=== PATIENT | female | born 1950 | race Caucasian/White ===

== ENCOUNTER 2020-11-07 17:11 | Emergency (ER) | payer MEDICARE, SELFPAY ==
--- NOTE | ~2020-11-07 | XR_ITS ---
EXAMINATION: XR knee LT min 4V DATE: 11/07/2020 17:43 INDICATION: Left knee injury and pain and swelling. TECHNIQUE: 5 views of left knee were obtained. COMPARISON: None. FINDINGS: Bone alignment is normal. No fracture. There is mild osteoarthritis of medial and lateral c ompartments and moderate osteoarthritis of patellofemoral compartment. There is ossification of origi n of medial collateral ligament. There is a vascular stent in the thigh. No knee joint effusion. IMPRESSION: 1. Moderate left knee osteoarthritis. Reviewed, dictated and finalized at location A.
[2020-11-07 17:16] VITALS: BP 154/74; PULSE 72; RESP 20; TEMP 36.2; O2SAT 94
[2020-11-07 17:26] VITALS: BP 154/74; PULSE 72; RESP 20; TEMP 36.2; O2SAT 94
--- NOTE | 2020-11-07 17:39 | ED.LOWEXIN ---
HPI - Extremity Injury (Lower) General Chief Complaint: Extremity Injury, Lower Stated Complaint: lt knee injury Source: patient, RN notes reviewed and old records reviewed Mode of arrival: ambulatory Limitations: no limitations History of Present Illness HPI Narrative: 70 year old female who presents to [facility] care with complaints of injury to her left knee when she lost her footing at home and fell onto carpeted surface. Patient has large amount of bruising and swelling to her left anterior knee, does have full ROM to her knee with out acute pain. Patient also has bruising to her right anterior arm with no pain or swelling noted. Patient states that she broke her glasses, is unsure if she hit her head but states no LOC, dizziness or visual disturbances. Patient does admit to a frontal headache but states no nausea or any acute pain to head MD complaint: knee injury and fall Onset (ago): hour(s) (1 hour prior to arrival) Injury: Left: knee (anterior aspect) Type of Injury: blunt Place: home Severity: moderate Related Data Home Medications Medication Instructions Recorded Confirmed allopurinol 11/07/20 atorvastatin 11/07/20 benzonatate mg PO 11/07/20 clopidogrel 11/07/20 empagliflozin [Jardiance] mg 11/07/20 escitalopram oxalate mg 11/07/20 famotidine 11/07/20 gabapentin 11/07/20 icosapent ethyl [Vascepa] g PO 11/07/20 levothyroxine 11/07/20 losartan 11/07/20 metformin mg 11/07/20 sitagliptin [Januvia] mg 11/07/20 Allergies Allergy/AdvReac Type Severity Reaction Status Date / Time No Known Allergies Allergy Verified 11/07/20 17:25 Review of Systems Review of Systems: Narrative: CONSTITUTIONAL: Denies fever, chills, or sweats. EYES: Denies visual changes, redness, or discharge. ENT: Denies rhinorrhea, congestion, sore throat, or otalgia. CARDIOVASCULAR: Denies chest pain, palpitations, or edema. RESPIRATORY: Denies cough or dyspnea. GASTROINTESTINAL: Denies abdominal pain, nausea, vomiting, or diarrhea. GENITOURINARY: Denies dysuria or hematuria. SKIN: Denies rash or itching. MUSCULOSKELETAL: Denies back pain, positive to left knee joint pain with bruising noted, bruising to right anterior upper arm with no swelling or pain. NEUROLOGIC frontal headache, no numbness, or weakness. PSYCHIATRIC: Denies anxiety or depression. All systems reviewed & are unremarkable except as noted in HPI and below PMFSH Past Medical History Medical History (Updated 11/07/20 @ 19:24 by Marylu Alston NP) COPD (chronic obstructive pulmonary disease) Diabetes Gout Hypercholesterolemia Hypertension Surgical History Surgical History (Updated 11/07/20 @ 17:48 by Marylu Alston NP) H/O section H/O inguinal hernia repair H/O: hysterectomy Hx of cholecystectomy Family History Family History (Updated 11/07/20 @ 19:20 by Marylu Alston NP) Mother Heart disease Diabetes mellitus Father Hypertension Grandparent Diabetes mellitus Breast cancer Social History Social History (Updated 11/07/20 @ 17:54 by Marylu Alston NP) Smoking status: Former smoker Tobacco type: cigarettes Additional smoking assessment comments: quit 2001 Alcohol intake: current Alcohol use details: rare social Substance use: never Living arrangements: alone Gender identity (if verbalized by the patient): Female Comments At time of signature, agree with nursing past medical, surgical, social and family history. There is no relevant family history pertinent to the presenting complaint Exam Narrative: Exam Narrative: GENERAL: Well-appearing, well-nourished, and in no acute distress. HEAD: Normocephalic, atraumatic. EYES: PERRLA and EOMI. ENT: Nares clear, no rhinorrhea or epistaxis. Mucous membranes moist. TM's normal with good light reflex, throat pink with no exudates or lesions, no tonsil enlargement. NECK: Supple. no lymphadenopathy CHEST: Clear to auscultation. No respiratory di
== END 2020-11-07 18:03 | disposition home or self-care (01) ==
PROVIDERS: Emergency Provider Registered Nurse; PCP Internal Medicine
DX: S80.02XA Contusion of left knee, initial encounter (principal); W01.0XXA Fall on same level from slipping, tripping and stumbling without subsequent striking against object, initial encounter; J44.9 Chronic obstructive pulmonary disease, unspecified; E11.9 Type 2 diabetes mellitus without complications; M10.9 Gout, unspecified; E78.00 Pure hypercholesterolemia, unspecified; I10 Essential (primary) hypertension
CPT/HCPCS: 73564; 99213; G0463

== ENCOUNTER 2021-08-10 13:16 | Outpatient (CLI) | payer MEDICARE, SELFPAY ==
--- NOTE | ~2021-08-10 | CT_ITS ---
EXAMINATION:CT diagnostic chest wo con DATE: 08/10/2021 14:00 INDICATION: Shortness of breath. TECHNIQUE: Computed tomography (CT) of the chest was performed without intravenous contrast. Automate d exposure control and iterative reconstruction technique were employed. The dose-length product (DLP ) was 640.55 mGy-cm. COMPARISON: None. FINDINGS: There is diffuse mosaic attenuation in the lungs. There is peripheral septal thickening in the lower lungs. No bronchiectasis or honeycombing. There are a few scattered nodules in the lungs me asuring up to 4 mm, likely benign. No pleural effusion. The heart size is normal. There are coronary artery calcifications. No pericardial effusion. There are changes of cholecystectomy. There are cysts in left kidney measuring up to 2.5 cm. There are bridging endplate osteophytes at multiple levels in the spine, consistent with diffuse idiopathic skeletal hyperostosis (DISH). There is severe cervical spondylosis. At T6-T7, there is moderate central canal stenosis. IMPRESSION: 1. 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 Reviewed, dictated and finalized at location A. S ROOM ASSISTANT
[2021-08-10 13:31] VITALS: PULSE 75; O2SAT 87
[2021-08-10 13:32] VITALS: PULSE 76; O2SAT 87
[2021-08-10 13:34] VITALS: PULSE 75; O2SAT 90
[2021-08-10 13:36] VITALS: PULSE 93; O2SAT 86
[2021-08-10 13:37] VITALS: PULSE 94; O2SAT 89
--- NOTE | 2021-08-10 13:44 | HOMEO2EVAL ---
Evaluation was performed at [facility] Home Oxygen Evaluation RC: Home Oxygen (O2) Evaluation Start: 08/10/21 13:41 Freq: Status: Active Protocol: RPE Activity Type Activity Date Activity User E-Sign Co-Sign Detail Recorded Client Recorded Date Recorded By Document 08/10/21 13:31 KRM [id number] 08/10/21 13:44 KRM Document 08/10/21 13:32 [email or web address] [id number] 08/10/21 13:44 KRM Document 08/10/21 13:34 KRM [id number] 08/10/21 13:44 KRM Document 08/10/21 13:36 [email or web address] [email or web address] 08/10/21 13:44 KRM Document 08/10/21 13:37 KRM [email or web address] 08/10/21 13:44 KRM 08/10/21 08/10/21 08/10/21 13:31 13:32 13:34 Home O2 Evaluation Test Phase Resting Resting Resting Oxygen Delivery Room Air Nasal Cannula Nasal Cannula Oxygen Flow Rate (L/min) 1 2 Pulse Oximetry (90-100 %) 87 L 87 L 90 Pulse Rate (60-100 beats/min) 75 76 75 Activity Tolerance Ambulation Distance (feet) Ambulation Distance (meters) Home Oxygen Evaluation Comments Treatment Charges O2 Evaluation - Outpatient 08/10/21 08/10/21 13:36 13:37 Home O2 Evaluation Test Phase Exercise Exercise Oxygen Delivery Nasal Cannula Nasal Cannula Oxygen Flow Rate (L/min) 2 3 Pulse Oximetry (90-100 %) 86 L 89 L Pulse Rate (60-100 beats/min) 93 94 Activity Tolerance Fair Fair Ambulation Distance (feet) 100 Ambulation Distance (meters) 30.47 Home Oxygen Evaluation Comments 2 LPM AT REST AND 3LPM WITH ACTIVITY. Treatment Charges
== END 2021-08-10 13:17 | disposition home or self-care (01) ==
LOC: ANHPFT 13:19
PROVIDERS: PCP Internal Medicine; Visit Provider Internal Medicine Pulmonary Disease
DX: R06.00 Dyspnea, unspecified (principal); J98.4 Other disorders of lung
CPT/HCPCS: 71250; 94618

== ENCOUNTER 2021-09-03 13:33 | Outpatient (CLI) | payer MEDICARE, SELFPAY ==
--- NOTE | 2021-09-03 16:22 | WPDPFTINT ---
PFT Procedure Performed PFT Procedure Performed Spirometry with Pre/Post Bronchodilator Plethysmography (Lung Vol) Diffusing Cap (DLCO) Flow Vol Loop PFT Interpretation This is a pulmonary function test with pre and post-bronchodilator spirometry, plethysmography and diffusing capacity. The test was performed and results interpreted in accordance with the 2019 and 2005 ATS/ERS Task Force guidelines respectively using the Global Lung Function Initiative-2012 reference equations. Patient demonstrated good effort and cooperation. Reproducibility criteria were met. The quality of the pre bronchodilator spirometry maneuver was Grade A and post bronchodilator spirometry maneuver was Grade A. Findings: Spirometry: There is decreased maximal expiratory airflow at low lung volumes with concave expiratory flow tracing. The contour of the inspiratory flow tracing is normal. The pre bronchodilator FVC is 1.33 L, 55% predicted. The pre bronchodilator FEV1 is 0.93 L, 49% predicted. The FEV1: FVC ratio 70%. The post bronchodilator FVC is 1.50 L, representing a 170 mL increase or 13% increase. The post bronchodilator FEV1 is 0.93 L, representing 1% decrease. The post bronchodilator FEV1: FVC ratio is 62% predicted. Plethysmography: The total lung capacity is 3.52 L, 82% predicted. The functional residual capacity is 2.11 L, 87% predicted. The residual volume is 2.01 L, 105% predicted. Diffusing capacity: The diffusion capacity unadjusted for hemoglobin is 9.8, 53% predicted. The diffusing capacity adjusted for alveolar volume is 4.15, 92% predicted. Impression: There is a severe obstructive abnormality without significant improvement after inhaling a single dose of albuterol. The lung volumes are normal. The diffusing capacity unadjusted for hemoglobin is moderately decreased and normalizes when adjusted for alveolar volume. There are no prior studies for comparison
[2021-09-03 16:42] LABS: Rheumatoid Factor < 12.0 IU/ML (<12)
[2021-09-07 12:53] LABS: Anti Cyclic Citrullinated Pept <16 Units (<20)
[2021-09-07 19:42] LABS: ANA Cascade Screen Negative (Negative)
[2021-09-09 13:23] LABS: ANCA Screen Negative (Negative)
== END 2021-09-03 13:34 | disposition home or self-care (01) ==
PROVIDERS: PCP Internal Medicine; Visit Provider Internal Medicine Pulmonary Disease
DX: J84.9 Interstitial pulmonary disease, unspecified (principal); R06.00 Dyspnea, unspecified; R94.2 Abnormal results of pulmonary function studies
CPT/HCPCS: 36415; 86036; 86038; 86200; 86331; 86430; 86606; 86609; 94060; 94726; 94729

== ENCOUNTER 2021-09-23 09:11 | Outpatient (CLI) | payer MEDICARE, SELFPAY ==
--- NOTE | 2021-09-30 20:07 | WPDSLEEPSTUD ---
Sleep Study Date of Study: 09/23/21 Ordering Provider: Bennie Kelley MD Interpreting Physician: Denice Wilson MD Sleep Study Type: BiPAP Titration Height: 1.5 m Weight: 98.43 kg Body Mass Index: 43.8 Neck Circumference (inches): 17 [place]: 11 Reason for Sleep Study Obstructive sleep apnea, BiPAP titration 03/05/2019 with pressure 24/14 and 2 L/min O2 She presents for re-titration Sleep History Awilda Bertrand is a 70 year old female with obstructive sleep apnea which is severe, AHI was 45.3 with a low saturation of 94% on a split night study 03/05/2019. This was at [facility] in [place], [place]. Her [place] was 17 at the time. Her BMI was 46.3. She was titrated to 24/14 with O2 at 2 L a minute, and started treatment in March of 2019. She continues to have symptoms.. She now presents for a repeat titration. She also has COPD, long history of tobacco. She does not awaken sleep was short of breath. She occasionally awakens at night with heartburn, belching or coughing. She frequently snores, rarely loud enough that others complain about it. She occasionally has trouble sleeping with a cold. She does not gasp for breath at night, does not have breathing problems at night observed by others and does not sweat excessively at night. She does not notice her heart pounding or beating irregularly at night. She occasionally falls asleep during the day occasionally involuntarily but never while driving. She does not have loss of muscle tone with strong emotion. She does not have daytime difficulties due to excessive sleepiness. She does not feel paralyzed on waking or falling asleep or have vivid dreamlike scenes upon awakening or falling asleep. She does not feel afraid to go to sleep. She occasionally remembers her dreams. She rarely has racing thoughts. She does not feel sad or depressed. She does not have anxiety, does not have muscular tension, does not notice parts of her body jerking. She does not kick at night. She denies crawling aching feelings in her legs. She denies any kind of leg pain at night. She does not have morning jaw pain. She does not grind her teeth during sleep. She occasionally is bothered by pain during the day rarely awakened by pain at night. She does not wake up feeling stiff in the morning. She occasionally wakes up with sore achy muscles. She rarely wakes up with pain in the neck and spine. Normal bedtime is 2:00 a.m. falling asleep within 1/2 hour, not waking up during the night. She normally wakes the morning between 10:00 a.m. and 11:00 a.m.. Her weekend schedule is the same. She estimates getting 8-10 hours of sleep at night. She takes naps in the afternoon or evening. A short nap may be refreshing. She generally awakens feeling refreshed. Habits: No tobacco since 2002, long smoking history prior to that. Caffeine 3 cups a day. No alcohol. No recreational drugs. [facility] Past Medical History Medical History COPD (chronic obstructive pulmonary disease) Diabetes Gout Hypercholesterolemia Hypertension Obstructive sleep apnea Surgical History Surgical History H/O section H/O inguinal hernia repair H/O: hysterectomy Hx of cholecystectomy Family History Family History Mother Heart disease Diabetes mellitus Father Hypertension Grandparent Diabetes mellitus Breast cancer Social History Social History Smoking status: Former smoker Tobacco type: cigarettes Additional smoking assessment comments: quit 2001 Alcohol intake: current Alcohol use details: rare social Substance use: never Gender identity (if verbalized by the patient): Female Medications Home Medications Medication Instructions Recorded C
[2021-10-04 11:57] VITALS: BMI 43.8
== END 2021-09-24 07:10 | disposition home or self-care (01) ==
LOC: ANHCSM 09:12
PROVIDERS: PCP Internal Medicine; Visit Provider Internal Medicine Pulmonary Disease
DX: G47.33 Obstructive sleep apnea (adult) (pediatric) (principal)
CPT/HCPCS: 95811

== ENCOUNTER 2021-12-03 15:38 | Outpatient (CLI) | payer MEDICARE, SELFPAY ==
[2021-12-03 16:26] LABS: Basophils Absolute Auto 0.1 K/mm3 (0.0-0.1); Basophils Percent Auto 0.9 % (0.2-1.2); Eosinophils Absolute Auto 0.5 K/mm3 (0-0.3); Eosinophils Percent Auto 5.9 % (0-4.4); Hematocrit 51.4 % (37.0-47.0); Hemoglobin 15.8 g/dL (12.0-15.0); Immature Granulocyte Absolute 0.06 K/mm3 (0.00-0.031); Immature Granulocyte Percent A 0.7 % (0-0.5); Lymphocytes Absolute Auto 2.39 K/mm3 (0.9-3.2); Lymphocytes Percent Auto 26.6 % (18.3-44.2); Mean Corpuscular HGB Conc 30.7 g/dl (32-36); Mean Corpuscular Hemoglobin 28.7 pg (26-34); Mean Corpuscular Volume 93.5 fl (80-100); Mean Platelet Volume 9.6 fl (7.4-10.4); Monocytes Absolute Auto 0.9 K/mm3 (0.1-0.6); Monocytes Percent Auto 9.7 % (2.6-8.5); Neutrophils Absolute Auto 5.1 K/mm3 (1.3-6.7); Neutrophils Percent Auto 56.2 % (45.5-73.1); Platelet Count Result 277 k/mm3 (150-375); Red Cell Distribution Width 15.9 % (11.5-14.5)
== END 2021-12-03 15:39 | disposition home or self-care (01) ==
LOC: ANHLAB 15:43
PROVIDERS: PCP Internal Medicine; Visit Provider Internal Medicine Pulmonary Disease
DX: N18.9 Chronic kidney disease, unspecified (principal); J44.9 Chronic obstructive pulmonary disease, unspecified
CPT/HCPCS: 36415; 82728; 85025

== ENCOUNTER 2022-01-01 16:05 | Emergency (ER) | payer MEDICARE, SELFPAY ==
[2022-01-01 16:14] VITALS: BP 152/84; PULSE 80; RESP 20; TEMP 36.7; O2SAT 94
[2022-01-01 16:16] VITALS: O2SAT 94
--- NOTE | 2022-01-01 16:20 | ED.FEMALEGU ---
HPI - Female Genitourinary General Chief complaint: Urogenital-Female Stated complaint: Urinary Problem Source: patient and RN notes reviewed Mode of arrival: ambulatory Limitations: no limitations History of Present Illness HPI Narrative: 71-year-old female presented for complaint of urinary pressure, frequency and urgency since yesterday. denies hematuria, flank pain, abdominal pain, fever/chills. Endorses a history of UTIs and states she had sepsis in 2019. History of diabetes and hypertension. She is on oxygen for COPD. Related Data Home Medications Medication Instructions Recorded Confirmed allopurinol 300 mg tablet 300 mg PO DAILY 01/01/22 01/01/22 atorvastatin 40 mg tablet 40 mg PO DAILY 01/01/22 01/01/22 empagliflozin 10 mg tablet 10 mg PO DAILY 01/01/22 01/01/22 (Jardiance) escitalopram oxalate 10 mg tablet 10 mg PO DAILY 01/01/22 01/01/22 famotidine 20 mg tablet 20 mg PO DAILY 01/01/22 01/01/22 gabapentin 300 mg tablet 300 mg PO TID 01/01/22 01/01/22 icosapent ethyl 1 gram capsule 2 g PO BID 01/01/22 01/01/22 (Vascepa) levothyroxine 50 mcg tablet 50 mcg PO DAILY 01/01/22 01/01/22 losartan 50 mg tablet 50 mg PO DAILY 01/01/22 01/01/22 metformin 1,000 mg tablet 1,000 mg PO DAILY 01/01/22 01/01/22 rivaroxaban 2.5 mg tablet (Xarelto) 2.5 mg PO BID 01/01/22 01/01/22 sitagliptin 50 mg tablet (Januvia) 50 mg PO DAILY 01/01/22 01/01/22 umeclidinium 62.5 mcg-vilanterol 1 inh inhalation DAILY 01/01/22 01/01/22 25 mcg/actuation powdr for inhalation (Anoro Ellipta) Allergies Allergy/AdvReac Type Severity Reaction Status Date / Time No Known Allergies Allergy Verified 01/01/22 16:28 Review of Systems Review of Systems: CONSTITUTIONAL: Denies body aches, fever, chills, or sweats. CARDIOVASCULAR: Denies chest pain, palpitations, or edema. RESPIRATORY: Denies cough or dyspnea. GASTROINTESTINAL: Denies abdominal pain, nausea, vomiting, or diarrhea. GENITOURINARY: Denies hematuria, flank pain SKIN: Denies rash, itching, or wounds. MUSCULOSKELETAL: Denies back pain or myalgia. PMFSH Comments At time of signature, I have reviewed and agree with nursing past medical, surgical, social and family history unless otherwise noted. Please see nursing chart for further information. There is no relevant family history pertinent to the presenting complaint Exam Narrative: GENERAL: Well-appearing ENT: Mucous membranes pink and moist. NECK: Normal AROM. Supple. CHEST: No respiratory distress. Clear to auscultation. HEART: Regular rate and rhythm. ABDOMEN: Soft, nontender, nondistended, normal active bowel sounds. No CVA tenderness SKIN: Warm, dry, no rash. NEURO: No focal deficits. Alert and oriented x3. Gait steady. Course Course Emergency Course: Patient is aware of diagnosis, understands and agrees to treatment plan. Anticipatory guidance given. Patient agrees to follow-up as directed and is aware of reasons to seek care at the emergency department. Portions of this record may have been created with voice recognition software Level of Care: Express Care Visit Vital Signs Vital signs: Vital Signs Temperature 98.0 F 01/01/22 16:14 Pulse Rate 80 01/01/22 16:14 Respiratory Rate 20 01/01/22 16:14 Blood Pressure 152/84 H 01/01/22 16:14 Pulse Oximetry 94 01/01/22 16:14 Oxygen Delivery Room Air 01/01/22 16:14 Temperature 98.0 F 01/01/22 16:14 Pulse Rate 80 01/01/22 16:14 Respiratory Rate 20 01/01/22 16:14 Blood Pressure 152/84 H 01/01/22 16:14 Pulse Oximetry 94 01/01/22 16:14 Oxygen Delivery Room Air 01/01/22 16:14 Reviewed MDM - Female Genitourinary MDM Narrative Medical decision making narrative: Urine shows UTI. Advised supportive measures and signs/symptoms to go to the ER. Pt is appropriate for outpt treatment and f/u. Differential Diagnosis Differential diagnosis: Likely urinary tract infection and cystitis Discharge Plan Discharge Cl
== END 2022-01-01 16:43 | disposition home or self-care (01) ==
PROVIDERS: Emergency Provider Nurse Practitioner Family; PCP Internal Medicine
DX: N39.0 Urinary tract infection, site not specified (principal); E78.00 Pure hypercholesterolemia, unspecified; I10 Essential (primary) hypertension; J44.9 Chronic obstructive pulmonary disease, unspecified; Z99.81 Dependence on supplemental oxygen; K21.9 Gastro-esophageal reflux disease without esophagitis; M17.0 Bilateral primary osteoarthritis of knee; E11.40 Type 2 diabetes mellitus with diabetic neuropathy, unspecified; E03.9 Hypothyroidism, unspecified; Z95.5 Presence of coronary angioplasty implant and graft; Z95.828 Presence of other vascular implants and grafts
CPT/HCPCS: 81003; 87077; 87086; 87186; 99213; G0463

== ENCOUNTER 2022-01-26 13:14 | Outpatient (CLI) | payer MEDICARE, SELFPAY ==
[2022-01-26 13:43] LABS: Basophils Absolute Auto 0.1 K/mm3 (0.0-0.1); Basophils Percent Auto 0.9 % (0.2-1.2); Eosinophils Absolute Auto 0.6 K/mm3 (0-0.3); Eosinophils Percent Auto 5.5 % (0-4.4); Hematocrit 48.7 % (37.0-47.0); Hemoglobin 14.8 g/dL (12.0-15.0); Immature Granulocyte Absolute 0.04 K/mm3 (0.00-0.031); Immature Granulocyte Percent A 0.4 % (0-0.5); Lymphocytes Absolute Auto 2.33 K/mm3 (0.9-3.2); Lymphocytes Percent Auto 22.8 % (18.3-44.2); Mean Corpuscular HGB Conc 30.4 g/dl (32-36); Mean Corpuscular Hemoglobin 28.4 pg (26-34); Mean Corpuscular Volume 93.5 fl (80-100); Mean Platelet Volume 9.3 fl (7.4-10.4); Monocytes Absolute Auto 0.8 K/mm3 (0.1-0.6); Monocytes Percent Auto 7.7 % (2.6-8.5); Neutrophils Absolute Auto 6.4 K/mm3 (1.3-6.7); Neutrophils Percent Auto 62.7 % (45.5-73.1); Platelet Count Result 249 k/mm3 (150-375); Red Blood Count 5.21 M/mm3 (4.2-5.4); Red Cell Distribution Width 15.9 % (11.5-14.5); White Blood Count 10.2 K/mm3 (4.5-10.0)
== END 2022-01-26 13:15 | disposition home or self-care (01) ==
PROVIDERS: PCP Internal Medicine; Visit Provider Nurse Practitioner Family
DX: J44.9 Chronic obstructive pulmonary disease, unspecified (principal); J96.10 Chronic respiratory failure, unspecified whether with hypoxia or hypercapnia
CPT/HCPCS: 36415; 85025

== ENCOUNTER 2022-04-06 12:33 | Outpatient (CLI) | payer MEDICARE, SELFPAY ==
--- NOTE | ~2022-04-06 | CT_ITS ---
EXAMINATION:CT chest high resolution wo co DATE: 04/06/2022 13:01 INDICATION: Chronic obstructive pulmonary disease, unspecified. TECHNIQUE: Computed tomography (CT) of the chest was performed without intravenous contrast. Automate d exposure control and iterative reconstruction technique were employed. The dose-length product (DLP ) was 484.03 mGy-cm. COMPARISON: Chest CT 08/10/2021 FINDINGS: There is diffuse mosaic attenuation in the lungs. Again seen is peripheral septal thickenin g in the inferior lungs. No bronchiectasis or honeycombing. There is a stable 4 mm groundglass nodule in right lower lobe, likely benign. There is a stable 3 mm nodule in right upper lobe, likely benign . There is mild emphysema. There is a new small groundglass opacity in left upper lobe, likely inflam mation or infection. No pleural effusion. The heart size is normal. There are coronary artery calcifi cations. No pericardial effusion. The central pulmonary arteries are enlarged, consistent with pulmon dc arterial hypertension. There are are changes of cholecystectomy. There is a 2.6 cm cyst in left k [place]. There are bridging endplate osteophytes at multiple levels in the spine, consistent with diffu se idiopathic skeletal hyperostosis (DISH). There is moderate central canal stenosis at T6-T7. IMPRESSION: 1. Stable diffuse lung disease, most likely a combination of mild emphysema and constrictive bronchio litis. Reviewed, dictated and finalized at location A. IMPRESSION: 1. Stable diffuse lung disease, most likely a combination of mild emphysema and constrictive bronchiolitis.
--- NOTE | 2022-04-06 16:36 | P.PCNPFT_ITS ---
PFT Procedure Performed PFT Procedure Performed Spirometry with Pre/Post Bronchodilator Plethysmography (Lung Vol) Diffusing Cap (DLCO) Flow Vol Loop PFT Interpretation This is a pulmonary function test with pre and post-bronchodilator spirometry, plethysmography and diffusing capacity. The test was performed and results interpreted in accordance with the 2019 and 2005 ATS/ERS Task Force guidelines respectively using the Global Lung Function Initiative-2012 reference equations. Patient demonstrated good effort and cooperation. Reproducibility criteria were met. The quality of the pre bronchodilator spirometry maneuver was Grade B and post bronchodilator spirometry maneuver was Grade A. Findings: Spirometry: The contour the inspiratory and expiratory flow tracing are normal. The pre bronchodilator FVC is 1.43 L, 60% predicted. The pre bronchodilator FEV1 is 0.99 L, 53% predicted. The pre bronchodilator FEV1: FVC ratio 69%. The post bronchodilator FVC is 1.49 L, representing a 5% increase. The post bronchodilator FEV1 is 0.99 L, representing a 1% increase. The post bronchodilator FEV1: FVC ratio 67%. Plethysmography: The total lung capacity is 3.27 L, 76% predicted. The functional residual capacity is 2.08 L, 86% predicted. The fungal residual volume is 1.84 L, 95% predicted. Diffusion capacity: The diffusing capacity unadjusted for hemoglobin and carboxyhemoglobin is 9.9, 53% predicted. The diffusing capacity adjusted for alveolar volume is 4.33, 96% predicted. In comparison to previous pulmonary function test on 09/03/2021 the post bronchodilator FVC is unchanged from 1.50 L to 1.49 L. The post bronchodilator FEV1 is unchanged from 0.93 L to 0.99 L. The total lung capacity is unchanged from 3.52 L to 3.27 L. The functional residual capacity is unchanged from 2.11 L to 2.08 L. The residual volume is unchanged from 2.01 L to 1.84 L. the diffusing capacity unadjusted for hemoglobin and carboxyhemoglobin is unchanged from 9.8 to 9.9. The diffusing capacity adjusted for alveolar volume is unchanged from 4.15 to 4.33. Impression: There is a moderately severe obstructive abnormality without significant improvement after inhaling a single dose of albuterol. The lung volumes are normal. The diffusing capacity unadjusted for hemoglobin and car boxyhemoglobin is moderately decreased and normalizes when adjusted for alveolar volume. When compared to prior pulmonary function test on 09/03/2021 there has been no significant change in the FVC, FEV1, total lung capacity, functional residual capacity, residual volume or diffusing capacity. Clinical correlation is recommended.
== END 2022-04-06 12:34 | disposition home or self-care (01) ==
LOC: ANHIMG 12:37
PROVIDERS: PCP Internal Medicine; Visit Provider Internal Medicine Pulmonary Disease
DX: J44.9 Chronic obstructive pulmonary disease, unspecified (principal); R06.00 Dyspnea, unspecified; R94.2 Abnormal results of pulmonary function studies
CPT/HCPCS: 71250; 94060; 94726; 94729

== ENCOUNTER 2023-05-04 08:10 | Outpatient (CLI) | payer MEDICARE, SELFPAY ==
--- NOTE | ~2023-05-04 | CT_ITS ---
EXAMINATION:CT diagnostic chest wo con DATE: 05/04/2023 08:34 INDICATION: Chronic obstructive pulmonary disease, unspecified. TECHNIQUE: Computed tomography (CT) of the chest was performed without intravenous contrast. Automate d exposure control and iterative reconstruction technique were employed. The dose-length product (DLP ) was 559.11 mGy-cm. COMPARISON: Chest CT 04/06/2022 FINDINGS: There is mild emphysema. There is mosaic attenuation in the lungs. There are a few pulmonar y nodules measuring up to 3 mm, likely benign. No pleural effusion. The heart size is normal. There a re coronary artery calcifications. No pericardial effusion. Aortic atherosclerosis is noted. The cent ral pulmonary arteries are enlarged, consistent with pulmonary arterial hypertension. There are aldridge es of cholecystectomy. There is a 2.5 cm cyst in left kidney. There are bridging endplate osteophytes at multiple levels in the spine, consistent with diffuse idiopathic skeletal hyperostosis (DISH). Th ere is severe cervical spondylosis. IMPRESSION: 1. Stable diffuse lung disease, most likely a combination of mild emphysema and chronic constrictive bronchiolitis. Reviewed, dictated and finalized at location E.
--- NOTE | 2023-05-04 16:33 | WPDPFTINT ---
PFT Procedure Performed PFT Procedure Performed Spirometry with Pre/Post Bronchodilator Plethysmography (Lung Vol) Diffusing Cap (DLCO) Flow Vol Loop PFT Interpretation This is a pulmonary function test with pre and post-bronchodilator spirometry, plethysmography and diffusing capacity. The test was performed and results interpreted in accordance with the 2019 and 2005 ATS/ERS Task Force guidelines respectively using the Global Lung Function Initiative-2012 reference equations. Patient demonstrated good effort and cooperation. Reproducibility criteria were met. The quality of the pre bronchodilator spirometry maneuver was Grade A and post bronchodilator spirometry maneuver was Grade A. Findings: Spirometry: The contour the inspiratory and expiratory flow tracing are normal. The pre bronchodilator FVC is 1.41 L, 60% predicted. The pre bronchodilator FEV1 is 1.03 L, 56% predicted. The pre bronchodilator FEV1: FVC ratio 73%. The post bronchodilator FVC is 1.46 L, representing a 3% increase. The post bronchodilator FEV1 is 0.93 L, representing a 10% decrease. The post bronchodilator FEV1: FVC ratio is 64%. Plethysmography: The total lung capacity is 3.74 L, 87% predicted. The functional residual capacity is 1.89 L, 78% predicted. The residual volume is 1.85 L, 94% predicted. Diffusing capacity: The diffusing capacity unadjusted for hemoglobin and carboxyhemoglobin is 9.9, 54% predicted. The diffusing capacity adjusted for alveolar volume is 4.03, 90% predicted. In comparison to previous pulmonary function testing on 04/06/2022 the post bronchodilator FVC is unchanged from 1.49 L to 1.46 L. The post bronchodilator FEV1 is unchanged from 0.99 L to 0.93 L. The total lung capacity is increased from 3.27 L to 3.74 L. The functional residual capacity is unchanged from 2.08 L to 1.89 L. The residual volume is unchanged from 1.84 L to 1.85 L. The diffusing capacity unadjusted for hemoglobin and carboxyhemoglobin is unchanged from 9.9 to 9.9. The diffusing capacity adjusted for alveolar volume is unchanged from 4.33 yo 4.03. Impression: The spirometry is normal without evidence of an obstructive abnormality. The lung volumes are normal without evidence of and restrictive abnormality. The FVC and FEV1 are moderately decreased without an obstructive or restrictive abnormality. This is an abnormal but nonspecific finding. There is no significant improvement after inhaling a single dose of albuterol. The diffusing capacity unadjusted for hemoglobin and carboxyhemoglobin is moderately decreased and normalizes when adjusted for alveolar volume. When compared to pulmonary function testing on 04/06/2022 there has been a greater than anticipated time dependent increase in the total lung capacity with no significant change in the FVC, FEV1, functional residual capacity, residual volume or diffusing capacity. Clinical correlation is recommended.
== END 2023-05-04 08:11 | disposition home or self-care (01) ==
PROVIDERS: PCP Internal Medicine; Visit Provider Internal Medicine Pulmonary Disease
DX: J44.9 Chronic obstructive pulmonary disease, unspecified (principal); R91.8 Other nonspecific abnormal finding of lung field; R91.1 Solitary pulmonary nodule
CPT/HCPCS: 71250; 94060; 94726; 94729

== ENCOUNTER 2024-11-28 08:16 | Outpatient (CLI) | payer MEDICARE, SELFPAY ==
--- OUTSIDE RECORDS SUMMARY | 2024-11-28 08:24 | XMS_ITS ---
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 Name Role Phone NateSophia quinn Primary Care Provider UnavailCHASE [place] Unavailable [phone] Allergies No Known Allergies Medications Medication SIG (Take, Route, Frequency, Duration) Notes Start Date End Date Status Losartan Potassium 50 MG 1 tablet Orally Once a day Active Levothyroxine Sodium 25 MCG 1 tablet in the morning on an empty stomach Orally Once a day Active B12 5000 MCG as directed Sublingual Active Vascepa 1 GM 2 capsules with meal s Orally Twice a day Active metFORMIN HCl 1000 MG 1/2 tablet with a meal Orally Once a day Active Multi Vitamin/Minerals - as directed Orally Active Vitamin C 250 MG 1 tablet Orally Once a day Active Januvia 50 MG as directed Orally Active Rivaroxaban 2.5 MG 1 tablet Orally Twic e a day Active Cranberry 500 MG as directed Orally Active Anoro Ellipta 62.5-25 MCG/ACT 1 puff Inhalation every evening Active Atorvastatin Calcium 40 MG 1 tablet Oral ly Once a day Active Aspir-Low 81 MG 1 tablet Orally Once a day Active Allopurinol 300 MG 1 tablet Orally Once a day Active Albuterol Sulfate HFA 108 (90 Base) MCG/ACT 1 puff as needed Inhalation every 4 hrs Active Jardiance 10 MG 1 tablet Orally Once a day Active Famotidine 20 MG 1 tablet at bedtime as needed Orally Once a day Active Escitalopram Oxalate 10 MG 1 tablet Oral ly Once a day Active Cilostazol 100 MG 1 tablet 30 minutes before or 2 hours after breakfast and dinner Orally Twice a day Active Problems Problem Type SNOMED Code ICD Code Onset Dates Problem Status W/U Status Risk Notes Problem [id number] Ulnar neuropathy of right upper extremity (G56.21) Active confirmed Vital Signs Temperature 97.7 degrees Fahrenheit 02/29/20 24 Blood pressure systolic 130 mm Hg 02/29/20 24 Blood pressure diastolic 76 mm Hg 024 Heart Rate 72 /min 02/29/2024 Respiratory Rate 18 /min 02/29/2024 Weight 214 lbs 02/29/2024 Oximetry 91 % 02/29/2024 Weight-kg 97.07 kg 02/29/2024 Encounters Encounter Location Date Provider Diagnosis [facility] [address] [id number] 02/29/2024 CHASE HERBERT Chronic kidney disea se, stage 3b N18.32 ; Bilateral renal cysts N28.1 ; Type 2 diabetes mellitus without complication, without long-term current use of insulin E11.9 ; Kidney stones N20.0 ; Essential hypertension I10 ; JAC on CPAP G47.33 ; Nocturnal hypoxemia G47.34 ; Peripheral arterial disease I73.9 ; Stenosis of right carotid artery I65.21 ; Gastroesophageal reflux disease without esophagitis K21.9 ; Acquired hypothyroidism E03.9 ; Controlled gout M10.9 ; Injury of right ulnar nerve at upper arm level, initial encounter S44.01XA and Ulnar neuropathy of right upper extremity G56.21 Assessments Encounter Date Diagnosis (ICD Code) Assessment Notes Treatment Notes Treatment Clinical Notes Section Notes 02/29/2024 Chronic kidney disease, stage 3b (ICD-10 - N18.32) 02/29/2024 Bilateral renal cysts (ICD-10 - N28.1) 02/29/2024 Type 2 diabetes mellitus without complication, without long-term current use of insulin (ICD-10 - E11.9) 02/29/2024 Kidney stones (ICD-10 - N20.0) 02/29/2024 Essential hypertension (ICD-10 - I10) 02/29/2024 JAC on CPAP (ICD-10 - G47.33) 02/29/2024 Nocturnal hypoxemia (ICD-10 - G47.34) 02/29/2024 Peripheral arterial disease (ICD-10 - I73.9) 02/29/2024 Stenosis of right carotid artery (ICD-10 - I65.21) 02/29/2024 Gastroesophageal reflux disease without esophagitis (ICD-10 - K21.9) 02/29/2024 Acquired hypothyroidism (ICD-10 - E03.9) 02/29/2024 Controlled gout (ICD-10 - M10.9) 02/29/2024 Injury of right ulnar nerve at upper arm level, initial encounter (ICD-10 - S44.01XA) 02/29/2024 Ulnar neuropathy of right upper extremity (ICD-10 - G56.21) Plan Of Treatment Pending Test Test Name Order Date Uric Acid, Serum 02/29/2024 Immunofixation, Serum 02/29/2024 Urinalysis, Complete 02/29/2024 Comp. Metabolic Panel (14) 02/29/2024 Urine-spot creatinine 02/29/2024 [id number]/RANDOM 02/29/2024 Next Appt Details Follow Up: 6 Months,PLEASE K EEP TAKING YOUR LOSARTAN THIS PROTECTS YOUR KIDNEY FUNCTION. PLEASE DO MY LABS. YOUR LABS ALSO SHOWED MILD INCREASE IN YOUR BLOOD COUNT BUT THIS IS NOT SEVERE YOUR HEMATOCRIT IS < 55.,THE [place] STUDY IS FINE FROM MY STANDPT., Reason: Progress Notes * Awilda MCCLAIN SDOB: 2 (74 yo F)Acc No.[id number]:02/29/2024 Progress Notes Patient: Awilda ROSALES Provider: Juani Godinez MD :1950 A ge:73 Y S ex:Female Date:02/29/2024 Address:[address] [place], [place] [id number] Pcp:Sophia Pantoja Subjective: * Chief Complaints: * * ROS: O phthalmologic: Patient complains of c ataract on l eye. R espiratory: Cough c ough and occ sob. G enitourinary: Patient complains of f requent urination and leaking urination w walking/ coughing. M usculoskeletal: Patient complains of t ired legs walking, joint stiffness and joint pain along with back pain- chronic / unchanged. S kin: Patient complains of e asy bruising. * Medical History: h ypertension- essential- NO HX OF MALIGNANT, Hypertriglyceridemia, arterioslceerosis of cad- cath Jul 2019- moderate dz, DM2- dx around 2015- POST STEROIDS AND PRESENTED W SEVERE CONFUSION, Thyroid nodule, Herpes zoster, jac w hypoxia- ON CPAP- 13 CM WITH 8L, chronic obstructive lung dz- 3 LITER OXYGEN, Osteoarthritis of knee, Hx acute kidney failure 5 years, GERD x 10 years, Morbid obesity, Gout, Chronic fatigue, Former smoker, e coli sepsis 5 years ago WITH UROSEPSIS- HAD HOME ANTIBIOTICS, Restless leg syndrome, Incisional hernia, Anxiety disorder, Edema of legs, peripheral vascular disease- s/p l atherectomy of sfa Apr 2020, carotid artery stneosis- s/p stent november 2019- on plavix UNTIL STARTED XARELTO, Kidney stones- last in 2004. * Surgical History: o pen cholecystectomy- W.O RUPTURE (done for post-prandial pain ruq- did have 17 stones)- some post removal diarrhea resolved. 1981, hysterectomy/ [facility]AHBSO- DUE TO CYST REMOVAL 1993, SEVERAL HERNIA SURGERIES- INCISIONAL- DR. HERRERA- UMBILICAL AND SURGICAL C SECTION SCAR 1993-, ATHRECTOMY L SFA 2019 , R CAROTID STENT 2019November 2019, C - SECTION . * Family History: F ather: . M other: , diagnosed with Heart disease. P aternal Grandfather: diagnosed with Essential hypertension, Heart disease. N on-Contributory. FATHER HEAVY SMOKER- EMPHYSEMA. 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 * Medications: T aking Anoro Ellipta 62.5-25 MCG/ACT Aerosol Powder Breath Activated 1 puff Inhalation every evening , Taking Multi Vitamin/Minerals - Tablet as directed Orally , Taking Vitamin C 250 MG Tablet Chewable 1 tablet Orally Once a day , Taking Januvia 50 MG Tablet as directed Orally , Taking Rivaroxaban 2.5 MG Tablet 1 tablet Orally Twice a day , Taking Cranberry 500 MG Capsule as directed Orally , Taking B12 5000 MCG Tablet Sublingual as directed Sublingual , Taking Vascepa 1 GM Capsule 2 capsules with meals Orally Twice a day , Taking metFORMIN HCl 1000 MG Tablet 1/2 tablet with a meal Orally Once a day , Taking Losartan Potassium 50 MG Tablet 1 tablet Orally Once a day , Taking Levothyroxine Sodium 25 MCG Tablet 1 tablet in the morning on an empty stomach Orally Once a day , Taking Jardiance 10 MG Tablet 1 tablet Orally Once a day , Taking Famotidine 20 MG Tablet 1 tablet at bedtime as needed Orally Once a day , Taking Escitalopram Oxalate 10 MG Tablet 1 tablet Orally Once a day , Taking Cilostazol 100 MG Tablet 1 tablet 30 minutes before or 2 hours after breakfast and dinner Orally Twice a day , Taking Atorvastatin Calcium 40 MG Tablet 1 tablet Orally Once a day , Taking Aspir-Low 81 MG Tablet Delayed Release 1 tablet Orally Once a day , Taking Allopurinol 300 MG Tablet 1 tablet Orally Once a day , Taking Albuterol Sulfate HFA 108 (90 Base) MCG/ACT Aerosol Solution 1 puff as needed Inhalation every 4 hrs , Medication List reviewed and reconciled with the patient * Allergies: N .K.D.A. Objective: * Vitals: B P:130/76mm Hg, HR:72/min, RR:18/min, Temp:97.7F, Oxygen sat %:91%, Wt:214lbs, Wt-k.07 kg. * Examination: G eneral Examination: ... J UNE 2023 WBC 8900 HGB 16.1 PLT 286K MCV 94 TSH 3.69 HGB A1C 7.1 BUN 21 CREAT 1.31 EGFR 43 GLUC 105 NA 140 K 4.6 CA 10.1 LFTS NL CHOL 155 TRIG 302 HDL 47 LDL 61 JANUARY 24, 2024- RENAL US R 10.5 L 13 CM, BILAT RENAL CYSTS(RIGHT 5.8X5.7X4.9 MEDIAL AND .6X4.1X3.6CM LATERAL & LEFT 1.9X1.4X1MID LEFT AND 3.6X3.3X2.8 UPPER POLE)) , BILATERAL RENAL STONES (1.3 CM R LOWER & LEFT 5MM LOWER POLE). JANUARY 03, 2024- EMG- R ULNAR NEUROPATHY AT ELBOW. V MILD RIGHT MEDIAN NERVE ENTRAPMENT AT FLEXOR RETINACTULUM MAMMOGRAM NOVEMBER 13, 2023- NEG. Assessment: * Assessment: 1. C hronic kidney disease, stage 3b - N18.32 (Primary) 2 . B ilateral renal cysts - N28.1 3 . T ype 2 diabetes mellitus without complication, without long-term current use of insulin - E11.9 4 . K idney stones - N20.0 5 . E ssential hypertension - I10 6 . O SA on CPAP - G47.33 7 . N octurnal hypoxemia - G47.34 8 . P eripheral arterial disease - I73.9? 9. S tenosis of right carotid artery - I65.21 1 0. G astroesophageal reflux disease without esophagitis - K21.9 1 1. A cquired hypothyroidism - E03.9 1 2. C ontrolled gout - M10.9 1 3. I njury of right ulnar nerve at upper arm level, initial encounter - S44.01XA 1 4. U lnar neuropathy of right upper extremity - G56.21 Plan: * Treatment: * Follow Up: 6 Months,PLEASE KEEP TAKING YOUR LOSARTAN THIS PROTECTS YOUR KIDNEY FUNCTION. PLEASE DO MY LABS. YOUR LABS ALSO SHOWED MILD INCREASE IN YOUR BLOOD COUNT BUT THIS IS NOT SEVERE YOUR HEMATOCRIT IS < 55.,THE [place] STUDY IS FINE FROM MY STANDPT. * Billing Information: * Visit Code: [id number] Office Visit, Est Pt., Level 4. * Procedure Codes: * Electronic signature of WALDO GODINEZ MD on 11/28/2024 at 08:24 AM CDT Sign off status: Pending * Provider: Juani [facility]inez MD Date: 0 02/29/2024 Generated for Marimar ellis/Rell/eTransmitting on: 0 11/28/2024 08:24 AM CDT History and Physical Notes * Examination Category Sub-Category Detail Notes Category Not es General Examination ... DECEMBER 28 4 WBC 8900 HGB 16.1 PLT 286K MCV 94 TSH 3.69 HGB A1C 7.1 BUN 21 CREAT 1.31 EGFR 43 GLUC 105 NA 140 K 4.6 CA 10.1 LFTS NL CHOL 155 TRIG 302 HDL 47 LDL 61 JANUARY 24, 2024- RENAL US R 10.5 L 13 CM, BILAT RENAL CYSTS(RIGHT 5.8X5.7X4.9 MEDIAL AND .6X4.1X3.6CM LATERAL & LEFT 1.9X1.4X1MID LEFT AND 3.6X3.3X2.8 UPPER POLE)) , BILATERAL RENAL STONES (1.3 CM R LOWER & LEFT 5MM LOWER POLE). JANUARY 03, 2024- EMG- R ULNAR NEUROPATHY AT ELBOW. V MILD RIGHT MEDIAN NERVE ENTRAPMENT AT FLEXOR RETINACTULUM MAMMOGRAM NOVEMBER 13, 2023- NEG
--- OUTSIDE RECORDS SUMMARY | 2024-11-28 08:24 | XMS_ITS ---
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 Role Phone Sindhu Pantojakatie Primary Care Provider UnavailCHASE [place] Unavailable [phone] Allergies No Known Allergies Medications Medication SIG (Take, Route, Frequency, Duration) Notes Start Date End Date Status Albuterol Sulfate HFA 108 (90 Base) MCG/ACT 1 puff as needed Inhalation every 4 hrs Active Allopurinol 300 MG 1 tablet Orally Once a day Active Aspir-Low 81 MG 1 tablet Orally Once a day Active Atorvastatin Calcium 40 MG 1 tablet Oral ly Once a day Active Cilostazol 100 MG 1 tablet 30 minutes before or 2 hours after breakfast and dinner Orally Twice a day Active Escitalopram Oxalate 10 MG 1 tablet Oral ly Once a day Active Famotidine 20 MG 1 tablet at bedtime as needed Orally Once a day Active Jardiance 10 MG 1 tablet Orally Once a day Active Levothyroxine Sodium 25 MCG 1 tablet in the morning on an empty stomach Orally Once a day Active Losartan Potassium 50 MG 1 tablet Orally Once a day Active metFORMIN HCl 1000 MG 1 tablet with a me al Orally Once a day Active Vascepa 1 GM 2 capsules with meal s Orally Twice a day Active B12 5000 MCG as directed Sublingual Active Cranberry 500 MG as directed Orally Active Rivaroxaban 2.5 MG 1 tablet Orally Twic e a day Active Vitamin C 250 MG 1 tablet Orally Once a day Active Multi Vitamin/Minerals - as directed Orally Active Januvia 50 MG as directed Orally Active Social History Tobacco Use: Social History Observation Description Date Details (start date - stop date) Former Smoker 01/08/1983 - 01/08/2003 Tobacco Use/Smoking Question Answer Notes Tobacco use: former smoker When did you start smoking? 01/08/1983 When did you stop smoking? 01/08/2003 How long has it been since y ou last smoked? 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 Problems Problem Type SNOMED Code ICD Code Onset Dates Problem Status W/U Status Risk Notes Problem [id number] Chronic kidney disease, stage 3b (N18.32) Active confirmed Problem 062329540 Type 2 diabetes mellitus without complication, without long-term current use of insulin (E11.9) Active confirmed Problem 26897899 Essential hypertension (I10) Active confirmed Problem 57741039 JAC on CPAP (G47.33) Active confirmed Problem 514061659 Nocturnal hypoxe damaris (G47.34) Active confirmed Problem 549244987 Peripheral arter ial disease (I73.9) Active confirmed Problem [id number] Stenosis of righ t carotid artery (I65.21) Active confirmed Problem 267169330 Gastroesophageal reflux disease without esophagitis (K21.9) Active confirmed Problem 512072227 Acquired hypothyroidism (E03.9) Active confirmed Problem 35093590 Controlled gout (M10.9) Active confirmed Problem 833304058 Injury of right ulnar nerve at upper arm level, initial encounter (S44.01XA) Active confirmed Problem 253384871 Bilateral renal cysts (N28.1) Active confirmed Problem 06333881 Kidney stones (N20.0) Active confirmed Vital Signs Temperature 97.7 degrees Fahrenheit 12/21/19 24 Blood pressure systolic 120 mm Hg 12/21/19 24 Blood pressure diastolic 68 mm Hg 024 Heart Rate 92 /min 12/21/2023 Respiratory Rate 18 /min 12/21/2023 Weight 217.2 lbs 12/21/2023 Weight-kg 98.52 kg 12/21/2023 Encounters Encounter Location Date Provider Diagnosis [facility] [address] [id number] 12/21/2023 CHASE GODINEZ Chronic kidney disea se, stage 3b N18.32 ; Type 2 diabetes mellitus without complication, without long-term current use of insulin E11.9 ; Essential hypertension I10 ; JAC on CPAP G47.33 ; Nocturnal hypoxemia G47.34 ; Peripheral arterial disease I73.9 ; Stenosis of right carotid artery I65.21 ; Gastroesophageal reflux disease without esophagitis K21.9 ; Acquired hypothyroidism E03.9 ; Controlled gout M10.9 and Injury of right ulnar nerve at upper arm level, initial encounter S44.01XA Assessments Encounter Date Diagnosis (ICD Code) Assessment Notes Treatment Notes Treatment Clinical Notes Section Notes 12/21/2023 Chronic kidney disease, stage 3b (ICD-10 - N18.32) 12/21/2023 Type 2 diabetes mellitus without complication, without long-term current use of insulin (ICD-10 - E11.9) 12/21/2023 Essential hypertension (ICD-10 - I10) 12/21/2023 JAC on CPAP (ICD-10 - G47.33) 12/21/2023 Nocturnal hypoxemia (ICD-10 - G47.34) 12/21/2023 Peripheral arterial disease (ICD-10 - I73.9) 12/21/2023 Stenosis of right carotid artery (ICD-10 - I65.21) 12/21/2023 Gastroesophageal reflux disease without esophagitis (ICD-10 - K21.9) 12/21/2023 Acquired hypothyroidism (ICD-10 - E03.9) 12/21/2023 Controlled gout (ICD-10 - M10.9) 12/21/2023 Injury of right ulnar nerve at upper arm level, initial encounter (ICD-10 - S44.01XA) Plan Of Treatment Pending Test Test Name Order Date EMG/NCV ARMS 12/21/2023 Uric Acid, Serum 12/21/2023 Immunofixation, Serum 12/21/2023 Urinalysis, Complete 12/21/2023 Comp. Metabolic Panel (14) 12/21/2023 Ultrasound : Kidneys and Bladder 024 Urine-spot sodium 12/21/2023 Urine-spot creatinine 12/21/2023 [id number]/RANDOM 12/21/2023 Next Appt Details Follow Up: 2 Months,I BELIEV E YOU HAVE CHRONIC KIDNEY DISEASE FROM DIABETES AND ATHEROSCLEROSIS. PLEASE KEEP TAKING YOUR KIDNEY PROTECTIVE MEDICATIONS- LOSARTAN,JANUVIA,, JARDIANCE AND ESPECIALLY LOSARTAN. EVERY DAY STRIVE TO DRINK AT LEAST 6 TO 8 CUPS AT 8 OUNCES EACH = 48 TO 64 OUNCES., Reason: Progress Notes * Awilda MCCLAIN SDOB: 2 (74 yo F)Acc No.[id number]:12/21/2023 Progress Notes Patient: Awilda ROSALES Provider: Juani Godinez MD :1950 A ge:73 Y S ex:Female Date:12/21/2023 Address:[address] [place], [place] [address]YAM [id number] Pcp:Sophia Pantoja Subjective: * Chief Complaints: * * HPI: T ransition of Care: WAS ON GABAPENTIN (FOR SHOULDER AND ARM PAIN- BUT NOT ON IT NOW) AND METFORMIN WAS LOWERED PAIN. * Medical History: h ypertension- essential- NO [...] 2019November 2019, C - SECTION . * Hospitalization/Major Diagno stic Procedure: D enies Past Hospitalization. * Family History: F ather: . M other: , diagnosed with Heart disease. P aternal Grandfather: diagnosed with Essential hypertension, Heart disease. N on-Contributory. FATHER HEAVY SMOKER- EMPHYSEMA. * Social History: T obacco Use: T obacco Use/Smoking T obacco use: f ormer smoker W hen did you start smoking? 0 01/08/1983 W hen did you stop smoking? 0 01/08/2003 H ow long has it been since you last smoked??> 10 years A dditional Findings: Tobacco User H eavy cigarette smoker (20-39 cigs/day) W ORKED PREVIOUSLY AT [employer] FOR [facility]. * Medications: T aking Multi Vitamin/Minerals - Tablet as directed Orally [...] , Taking metFORMIN HCl 1000 MG Tablet 1 tablet with a meal Orally Once a [...] Allergies: N .K.D.A. Objective: * Vitals: B P: 180/92 mm Hg,120/68mm Hg, HR:92/min, RR:18/min, Temp:97.7F, Wt:217.2lbs, Wt- k.52 kg. Assessment: * Assessment: 1. C hronic kidney disease, stage 3b - N18.32 (Primary) 2 . T ype 2 diabetes mellitus without complication, without long-term current use of insulin - E11.9 3 . E ssential hypertension - I10 4 . O SA on CPAP - G47.33 5 . N octurnal hypoxemia - G47.34 6 . P eripheral arterial disease - I73.9? 7. S tenosis of right carotid artery - I65.21 8 . G astroesophageal reflux disease without esophagitis - K21.9 9 . A cquired hypothyroidism - E03.9 1 0. C ontrolled gout - M10.9 1 1. I njury of right ulnar nerve at upper arm level, initial encounter - S44.01XA Plan: * Treatment: 2.?Controlled gout?LAB: Uric Acid, Serum3.?Injury of right ulnar nerve at upper arm level, initial encounter?Imaging: EMG/NCV ARMS* * Follow Up: 2 Months,I BELIEVE YOU HAVE CHRONIC KIDNEY DISEASE FROM DIABETES AND ATHEROSCLEROSIS. PLEASE KEEP TAKING YOUR KIDNEY PROTECTIVE MEDICATIONS- LOSARTAN,JANUVIA,, JARDIANCE AND ESPECIALLY LOSARTAN. EVERY DAY STRIVE TO DRINK AT LEAST 6 TO 8 CUPS AT 8 OUNCES EACH = 48 TO 64 OUNCES. * Billing Information: * Visit Code: [id number] Office Visit, New Pt., Level 4. * Procedure Codes: * Electronic signature of WALDO GODINEZ MD on 11/28/2024 at 08:24 AM CDT Sign off status: Pending * Provider: Juani Godinez MD Date: 0 12/21/2023 Generated for Marimar ellis/Rell/Margarita on: 0 11/28/2024 08:24 AM CDT
--- OUTSIDE RECORDS SUMMARY | 2024-11-28 08:25 | XMS_ITS | Data Portability ---
Author Organization [facility] Address [address] [place] [address] Care Team Providers Care Obiee Architect Name Role Phone TOR OCHOA Flush Tester YANN SCANLON Specimen Preparation Assistant TRENT URIAS Primary Care Provider Unavailabl e Assessment No assessment recorded. Plan of Treatment Reminders Order Date Submit Date Provider Last Modified By Organization Details Last Modified Time Details Appointments NEW PATIENT 2024 02:30P M Sagar Jones MD Not available Not available Not available ANY 15 2024 08:30A M TRENT URIAS, VICE PRESIDENT [employer]- Not available Not available Not available Lab HbA1c (hemoglo bin A1c), blood 2024 025 JUWAN In-Office Order, Internal Use Only DO Not Attach Compendium DO Not Attach Compendium, Do Not Delete/merge, [id number] 10/02/2024 13:50:04 HbA1c (hemoglo bin A1c), blood 2023 024 [facility], [address] [facility], [facility] [[email or web address] [address], [place], [address], 05/15/2024 04:11:41 lipid panel, serum 2023 024 [facility], [address] [facility], [facility] [[email or web address] [address], [place], [address], 05/15/2024 04:11:38 CBC w/ auto diff 2023 024 [facility], [address] [facility], [facility] [[email or web address] 2, [place], [address], 05/15/2024 04:11:43 CMP, serum or plasma 2023 024 [facility], [address] [place] [address] 2, [place], [address], 05/15/2024 04:11:39 TSH, ultra-se nsitive, serum 2023 024 [facility], [address] [place] [address] 2, [place], [address], 05/15/2024 04:11:42 HbA1c (hemoglo bin A1c), blood 2023 024 [facility], [address] [place] [address], [place], [address], 12/30/2023 10:36:22 lipid panel, serum 2023 024 [facility], [address] [place] [address], [place], [address], 12/30/2023 10:36:21 CMP, serum or plasma 2023 024 [facility], [address] [place] [address] 2, [place], [address], 12/30/2023 10:36:22 CBC w/ auto diff 2023 024 [facility], [address] [place] [address], [place], [address], 12/30/2023 10:36:24 TSH, ultra-se nsitive, serum 2023 024 [facility], [address] [place] [address], [place], [address], 12/30/2023 10:36:23 Referral nephrolo gist referral 2024 [email or web address] [place] [address], [address], [place], [address], 10/23/2024 16:19:50 diabetic ophthalm ology referral 2024 025 [facility], [address], [place], [address], 11/27/2024 08:18:21 endocrin ology referral 2024 025 [facility] Won[facility], [address] [facility] [address], [place], [address], 11/26/2024 10:56:12 Procedures None recorded . Surgeries None recorded . Imaging MAMMO, screenin g, bilatera l 2024 025 [facility] ([facility]) Scheduling, [address] [place], [address], 11/11/2024 10:04:26 MAMMO, screenin g, digital, bilatera l 2023 024 [facility] ([facility]) Scheduling, [address] [place], [address], 11/14/2023 13:52:21 Medication Orders Januvia 50 mg tablet 2024 025 [facility], [address] [place], [address], 10/02/2024 10:15:57 Jardianc e 10 mg tablet 2024 025 [facility], [address] [place], [address], 10/02/2024 10:15:56 levothyr oxine 50 mcg tablet 2024 025 [facility], [address] [place], [address], 10/02/2024 10:15:57 escitalo pram 10 mg tablet 2024 025 [facility], [address] [place], [address], 10/02/2024 10:16:00 cephalex in 500 mg capsule 2023 024 [facility], [address] [place], [address], 05/14/2024 11:36:24 atorvast atin 40 mg tablet 2023 024 [facility] [address], [address] [place], [address], 03/29/2024 14:31:26 famotidi ne 20 mg tablet 2023 024 [facility], [address] [place], [address], 03/29/2024 14:31:22 Patient TargetsNo targets recorded. Patient Instructions Encounter Date Encounter Id Patient Instructions Last Modified By Organization Details Last Modified Time 08/24/2023 [id number] A healthy lifestyle: care instructions nsuthan Not available 08/24/2023 12:09:39 f/u in 4 month nsuthan Not available 0 08/24/2023 12:09:12 01/02/2024 [id number] A healthy lifestyle: care instructions nsuthan Not available 01/02/2024 11:48:26 f/u in 4month nsuthan Not available 11:50:40 03/29/2024 [id number] keep f/u nsuthan Not available 03/29 15:31:47 05/14/2024 [id number] f/u in 4 month nsuthan Not available 05/14/2024 10:33:30 10/02/2024 [id number] advance care planning: care instructions [email or web address] Not available 10/02/2024 09:56:17 preventing falls : care instructions [email or web address] Not available 10/02/2024 09:56:16 Quitting Tobacco : Care Instructions Not available 10/02/2024 09:56:16 Medicare [facility] Preventive Checklist [email or web address] Not available 10/02/2024 09:56:16 eating healthy foods: care instructions [email or web address] Not available 10/02/2024 09:56:16 AD8 Dementia Screening Interview [email or web address] Not available 10/02/2024 09:56:17 Plan of care has been discussed with patient including expected therapeutic benefits and potential side effects of prescribed medication and treatments. Patient verbalizes understanding and is in agreement with the plan of care. Patient was instructed to keep all scheduled appointments and contact the clinic for any additional problems. Health Maintenance: - CRC screening (45-75): Recent colonoscopy-reques t records - Osteoporosis screening: Due at 65. 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 ronic kidney disease Referring Physician: [facility], Encounter Date: 10/02/2024 Diabetic Ophthalmology Refer ral for Type 2 diabetes mellitus without complication Referring Physician: [facility], Encounter Date: 10/02/2024 Endocrinology Referral for T ype 2 diabetes mellitus without complication Referring Physician: [facility], Encounter Date: 10/02/2024 Results Created Date Observation Date Name Description Value Unit Range Abnormal Flag Note LastModifiedBy Organization Detail LastModifiedTime 08/24/19 24 08/26/2023 LIPID PANEL cholesterol, total 133 mg/dL 100-19 9 Not Available [facility] ([facility]) [address], [place], [address], 08/26/2023 04:09:48 08/24/19 24 08/26/2023 LIPID PANEL triglyceride s 203 mg/dL 0-149 above high normal Not Available [facility] ([facility]) [address] [place], [address], 08/26/2023 04:09:48 08/24/19 24 08/26/2023 LIPID PANEL HDL cholesterol 52 mg/dL >39 Not Available [facility] ([facility]) [address] [place], [address], 08/26/2023 04:09:48 08/24/19 24 08/26/2023 LIPID PANEL VLDL cholesterol ion 33 mg/dL 5-40 Not Available [facility] ([facility]) [address] [place], [address], 08/26/2023 04:09:48 08/24/19 24 08/26/2023 LIPID PANEL LDL chol calc ([facility]) 48 mg/dL 0-99 Not Available [facility] ([facility]) [address] [place], [address], 08/26/2023 04:09:48 08/24/19 24 08/26/2023 COMP. METAB OLIC PANEL (14) glucose 100 mg/dL 70-99 above high normal Not Available [facility] ([facility]) [address] [place], [address], 08/26/2023 04:09:49 08/24/19 24 08/26/2023 COMP. METAB OLIC PANEL (14) BUN 18 mg/dL 8-27 Not Available [facility] ([facility]) [address] [place], [address], 08/26/2023 04:09:49 08/24/19 24 08/26/2023 COMP. METAB OLIC PANEL (14) creatinine 1.41 mg/dL 0.57-1 .00 above high normal Not Available [facility] ([facility]) [address] [place], [address], 08/26/2023 04:09:49 08/24/19 24 08/26/2023 COMP. METAB OLIC PANEL (14) eGFR 40 mL/mi n/1.7 3 >59 below low normal Not Available [facility] ([facility]) [address] [place], [address], 08/26/2023 04:09:49 08/24/19 24 08/26/2023 COMP. METAB OLIC PANEL (14) BUN/creatini ne ratio 13 12-28 Not Available [facility] ([facility]) [address] [place], [address], 08/26/2023 04:09:49 08/24/19 24 08/26/2023 COMP. METAB OLIC PANEL (14) sodium 143 mmol/ L 134-14 4 Not Available [facility] ([facility]) [address] [place], [address], 08/26/2023 04:09:49 08/24/19 24 08/26/2023 COMP. METAB OLIC PANEL (14) potassium 4.8 mmol/ L 3.5-5. 2 Not Available [facility] ([facility]) [address] [place], [address], 08/26/2023 04:09:49 08/24/19 24 08/26/2023 COMP. METAB OLIC PANEL (14) chloride 103 mmol/ L 96-106 Not Available [facility] ([facility]) [address] [place], [address], 08/26/2023 04:09:49 08/24/19 24 08/26/2023 COMP. METAB OLIC PANEL (14) carbon dioxide, total 23 mmol/ L 20-29 Not Available [facility] ([facility]) [address] [place], [address], 08/26/2023 04:09:49 08/24/19 24 08/26/2023 COMP. METAB OLIC PANEL (14) calcium 9.5 mg/dL 8.7-10 .3 Not Available [facility] ([facility]) [address] [place], [address], 08/26/2023 04:09:49 08/24/19 24 08/26/2023 COMP. METAB OLIC PANEL (14) protein, total 6.6 g/dL 6.0-8. 5 Not Available [facility] ([facility]) [address] [place], [address], 08/26/2023 04:09:49 08/24/1908/26/2023 COMP. METAB OLIC PANEL (14) albumin 3.8 g/dL 3.8-4. 8 Not Available [facility] ([facility]) [address] [place], [address], 08/26/2023 04:09:49 08/24/1908/26/2023 COMP. METAB OLIC PANEL (14) globulin, total 2.8 g/dL 1.5-4. 5 Not Available [facility] ([facility]) [address] [place], [address], 08/26/2023 04:09:49 08/24/1908/26/2023 COMP. METAB OLIC PANEL (14) A/G ratio 1.4 1.2-2. 2 Not Available [facility] ([facility]) [address] [place], [address], 08/26/2023 04:09:49 08/24/19 24 08/26/2023 COMP. METAB OLIC PANEL (14) bilirubin, total 0.3 mg/dL 0.0-1. 2 Not Available [facility] ([facility]) [address] [place], [address], 08/26/2023 04:09:49 08/24/19 24 08/26/2023 COMP. METAB OLIC PANEL (14) alkaline phosphatase 99 IU/L 44-121 Not Available [facility] ([facility]) [address] [place], [address], 08/26/2023 04:09:49 08/24/19 24 08/26/2023 COMP. METAB OLIC PANEL (14) AST (SGOT) 14 IU/L 0-40 Not Available [facility] ([facility]) [address] [place], [address], 08/26/2023 04:09:49 08/24/19 24 08/26/2023 COMP. METAB OLIC PANEL (14) ALT (SGPT) 11 IU/L 0-32 Not Available [facility] ([facility]) [address] [place], [address], 08/26/2023 04:09:49 08/24/19 24 08/25/2023 HEMOG LOBIN A1C hemoglobin A1C 6.6 % 4.8-5. 6 above high normal Predi abete s: 5.7 - 6.4 Diabe harinder: >6.4 Glyce tristan contr ol for adult s with diabe harinder: <7.0 Not Available [facility] ([facility]) [address] [place], [address], 08/26/2023 04:09:50 08/24/19 24 08/26/2023 TSH TSH 3.100 uIU/m L 0.450- 4.500 Not Available [facility] ([facility]) [address] [place], [address], 08/26/2023 04:09:50 08/24/19 24 08/25/2023 CBC WITH DIFFE RENTI AL/PL ATELE T WBC 9.5 x10e3 /uL 3.4-10 .8 Not Available [facility] ([facility]) [address] [place], [address], 08/26/2023 04:09:51 08/24/19 24 08/25/2023 CBC WITH DIFFE RENTI AL/PL ATELE T RBC 4.94 x10e6 /uL 3.77-5 .28 Not Available [facility] ([facility]) [address] [facility], [place], [address], 08/26/2023 04:09:51 08/24/1908/25/2023 CBC WITH DIFFE RENTI AL/PL ATELE T hemoglobin 15.1 g/dL 11.1-1 5.9 Not Available [facility] ([facility]) [address] [place], [address], 08/26/2023 04:09:51 08/24/1908/25/2023 CBC WITH DIFFE RENTI AL/PL ATELE T hematocrit 46.3 % 34.0-4 6.6 Not Available [facility] ([facility]) [address] [place], [address], 08/26/2023 04:09:51 08/24/1908/25/2023 CBC WITH DIFFE RENTI AL/PL ATELE T MCV 94 fL 79-97 Not Available [facility] ([facility]) [address] [place], [address], 08/26/2023 04:09:51 08/24/1908/25/2023 CBC WITH DIFFE RENTI AL/PL ATELE T MCH 30.6 pg 26.6-3 3.0 Not Available [facility] ([facility]) [address] [place], [address], 08/26/2023 04:09:51 08/24/19 24 08/25/2023 CBC WITH DIFFE RENTI AL/PL ATELE T MCHC 32.6 g/dL 31.5-3 5.7 Not Available [facility] ([facility]) [address] [place], [address], 08/26/2023 04:09:51 08/24/19 24 08/25/2023 CBC WITH DIFFE RENTI AL/PL ATELE T RDW 14.5 % 11.7-1 5.4 Not Available [facility] ([facility]) [address], [place], [address], 08/26/2023 04:09:51 08/24/19 24 08/25/2023 CBC WITH DIFFE RENTI AL/PL ATELE T platelets 259 x10e3 /uL 150-45 0 Not Available [facility] ([facility]) [address] [facility], [place], [address], 08/26/2023 04:09:51 08/24/19 24 08/25/2023 CBC WITH DIFFE RENTI AL/PL ATELE T neutrophils 54 % notest ab. Not Available [facility] ([facility]) [address] [facility], [place], [address], 08/26/2023 04:09:51 08/24/19 24 08/25/2023 CBC WITH DIFFE RENTI AL/PL ATELE T lymphs 32 % notest ab. Not Available [facility] ([facility]) [address] [facility], [place], [address], 08/26/2023 04:09:51 08/24/19 24 08/25/2023 CBC WITH DIFFE RENTI AL/PL ATELE T monocytes 9 % notest ab. Not Available [facility] ([facility]) [address] [facility], [place], [address], 08/26/2023 04:09:51 08/24/19 24 08/25/2023 CBC WITH DIFFE RENTI AL/PL ATELE T eos 4 % notest ab. Not Available [facility] ([facility]) [address] [facility], [place], [address], 08/26/2023 04:09:51 08/24/19 24 08/25/2023 CBC WITH DIFFE RENTI AL/PL ATELE T basos 1 % notest ab. Not Available [facility] ([facility]) [address] [facility], [place], [address], 08/26/2023 04:09:51 08/24/19 24 08/25/2023 CBC WITH DIFFE RENTI AL/PL ATELE T neutrophils (absolute) 5.1 x10e3 /uL 1.4-7. 0 Not Available [facility] ([facility]) [address] [facility], [place], [address], 08/26/2023 04:09:51 08/24/19 24 08/25/2023 CBC WITH DIFFE RENTI AL/PL ATELE T lymphs (absolute) 3.0 x10e3 /uL 0.7-3. 1 Not Available [facility] ([facility]) [address] [facility], [place], [address], 08/26/2023 04:09:51 08/24/19 24 08/25/2023 CBC WITH DIFFE RENTI AL/PL ATELE T monocytes(ab solute) 0.8 x10e3 /uL 0.1-0. 9 Not Available [facility] ([facility]) [address] [place], [address], 08/26/2023 04:09:51 08/24/19 24 08/25/2023 CBC WITH DIFFE RENTI AL/PL ATELE T eos (absolute) 0.4 x10e3 /uL 0.0-0. 4 Not Available [facility] ([facility]) [address] [place], [address], 08/26/2023 04:09:51 08/24/19 24 08/25/2023 CBC WITH DIFFE RENTI AL/PL ATELE T baso (absolute) 0.1 x10e3 /uL 0.0-0. 2 Not Available [facility] ([facility]) [address] [place], [address], 08/26/2023 04:09:51 08/24/19 24 08/25/2023 CBC WITH DIFFE RENTI AL/PL ATELE T immature granulocytes 0 % notest ab. Not Available [facility] ([facility]) [address] [place], [address], 08/26/2023 04:09:51 08/24/19 24 08/25/2023 CBC WITH DIFFE RENTI AL/PL ATELE T immature grans (abs) 0.0 x10e3 /uL 0.0-0. 1 Not Available [facility] ([facility]) [address] [place], [address], 08/26/2023 04:09:51 09/27/19 24 09/28/2023 BASIC METAB OLIC PANEL (8) glucose 102 mg/dL 70-99 above high normal Not Available [facility] ([facility]) [address] [place], [address], 09/28/2023 07:15:40 09/27/19 24 09/28/2023 BASIC METAB OLIC PANEL (8) BUN 28 mg/dL 8-27 above high normal Not Available [facility] ([facility]) [address] [place], [address], 09/28/2023 07:15:40 09/27/1909/28/2023 BASIC METAB OLIC PANEL (8) creatinine 1.57 mg/dL 0.57-1 .00 above high normal Not Available [facility] ([facility]) [address] [place], [address], 09/28/2023 07:15:40 09/27/19 24 09/28/2023 BASIC METAB OLIC PANEL (8) eGFR 35 mL/mi n/1.7 3 >59 below low normal Not Available [facility] ([facility]) [address] [place], [address], 09/28/2023 07:15:40 09/27/19 24 09/28/2023 BASIC METAB OLIC PANEL (8) BUN/creatini ne ratio 18 12-28 Not Available [facility] ([facility]) [address] [place], [address], 09/28/2023 07:15:40 09/27/19 24 09/28/2023 BASIC METAB OLIC PANEL (8) sodium 142 mmol/ L 134-14 4 Not Available [facility] ([facility]) [address] [place], [address], 09/28/2023 07:15:40 09/27/19 24 09/28/2023 BASIC METAB OLIC PANEL (8) potassium 4.7 mmol/ L 3.5-5. 2 Not Available [facility] ([facility]) [address] [place], [address], 09/28/2023 07:15:40 09/27/19 24 09/28/2023 BASIC METAB OLIC PANEL (8) chloride 103 mmol/ L 96-106 Not Available [facility] ([facility]) [address] [place], [address], 09/28/2023 07:15:40 09/27/19 24 09/28/2023 BASIC METAB OLIC PANEL (8) carbon dioxide, total 22 mmol/ L 20-29 Not Available [facility] ([facility]) [address] [place], [address], 09/28/2023 07:15:40 09/27/19 24 09/28/2023 BASIC METAB OLIC PANEL (8) calcium 9.7 mg/dL 8.7-10 .3 Not Available [facility] ([facility]) [address] [place], [address], 09/28/2023 07:15:40 12/29/19 24 12/30/2023 LIPID PANEL cholesterol, total 155 mg/dL 100-19 9 Not Available [facility] ([facility]) [address] [facility], [place], [address], 12/30/2023 10:36:21 12/29/19 24 12/30/2023 LIPID PANEL triglyceride s 302 mg/dL 0-149 above high normal Not Available [facility] ([facility]) [address] [place], [address], 12/30/2023 10:36:21 12/29/19 24 12/30/2023 LIPID PANEL HDL cholesterol 47 mg/dL >39 Not Available [facility] ([facility]) [address] [place], [address], 12/30/2023 10:36:21 12/29/19 24 12/30/2023 LIPID PANEL VLDL cholesterol ion 47 mg/dL 5-40 above high normal Not Available [facility] ([facility]) [address] [place], [address], 12/30/2023 10:36:21 12/29/19 24 12/30/2023 LIPID PANEL LDL chol calc ([facility]) 61 mg/dL 0-99 Not Available [facility] ([facility]) [address] [place], [address], 12/30/2023 10:36:21 12/29/19 24 12/30/2023 COMP. METAB OLIC PANEL (14) glucose 105 mg/dL 70-99 above high normal Not Available [facility] ([facility]) [address] [place], [address], 12/30/2023 10:36:21 12/29/19 24 12/30/2023 COMP. METAB OLIC PANEL (14) BUN 21 mg/dL 8-27 Not Available [facility] ([facility]) [address] [place], [address], 12/30/2023 10:36:21 12/29/19 24 12/30/2023 COMP. METAB OLIC PANEL (14) creatinine 1.31 mg/dL 0.57-1 .00 above high normal Not Available [facility] ([facility]) [address] [facility], [place], [address], 12/30/2023 10:36:21 12/29/19 24 12/30/2023 COMP. METAB OLIC PANEL (14) eGFR 43 mL/mi n/1.7 3 >59 below low normal Not Available [facility] ([facility]) [address] [facility], [place], [address], 12/30/2023 10:36:21 12/29/19 24 12/30/2023 COMP. METAB OLIC PANEL (14) BUN/creatini ne ratio 16 12-28 Not Available [facility] ([facility]) [address] [facility], [place], [address], 12/30/2023 10:36:21 12/29/19 24 12/30/2023 COMP. METAB OLIC PANEL (14) sodium 140 mmol/ L 134-14 4 Not Available [facility] ([facility]) [address] [place], [address], 12/30/2023 10:36:21 12/29/19 24 12/30/2023 COMP. METAB OLIC PANEL (14) potassium 4.6 mmol/ L 3.5-5. 2 Not Available [facility] ([facility]) [address] [place], [address], 12/30/2023 10:36:21 12/29/19 24 12/30/2023 COMP. METAB OLIC PANEL (14) chloride 101 mmol/ L 96-106 Not Available [facility] ([facility]) [address] [place], [address], 12/30/2023 10:36:21 12/29/19 24 12/30/2023 COMP. METAB OLIC PANEL (14) carbon dioxide, total 20 mmol/ L 20-29 Not Available [facility] ([facility]) [address] [place], [address], 12/30/2023 10:36:21 12/29/19 24 12/30/2023 COMP. METAB OLIC PANEL (14) calcium 10.1 mg/dL 8.7-10 .3 Not Available [facility] ([facility]) [address] [place], [address], 12/30/2023 10:36:21 12/29/19 24 12/30/2023 COMP. METAB OLIC PANEL (14) protein, total 7.0 g/dL 6.0-8. 5 Not Available [facility] ([facility]) [address] [place], [address], 12/30/2023 10:36:21 12/29/19 24 12/30/2023 COMP. METAB OLIC PANEL (14) albumin 4.3 g/dL 3.8-4. 8 Not Available [facility] ([facility]) [address] [place], [address], 12/30/2023 10:36:21 12/29/19 24 12/30/2023 COMP. METAB OLIC PANEL (14) globulin, total 2.7 g/dL 1.5-4. 5 Not Available [facility] ([facility]) [address] [place], [address], 12/30/2023 10:36:21 12/29/19 24 12/30/2023 COMP. METAB OLIC PANEL (14) bilirubin, total 0.6 mg/dL 0.0-1. 2 Not Available [facility] ([facility]) [address] [place], [address], 12/30/2023 10:36:21 12/29/19 24 12/30/2023 COMP. METAB OLIC PANEL (14) alkaline phosphatase 96 IU/L 44-121 Not Available [facility] ([facility]) [address] [facility], [place], [address], 12/30/2023 10:36:21 12/29/19 24 12/30/2023 COMP. METAB OLIC PANEL (14) AST (SGOT) 20 IU/L 0-40 Not Available [facility] ([facility]) [address] [place], [address], 12/30/2023 10:36:21 12/29/19 24 12/30/2023 COMP. METAB OLIC PANEL (14) ALT (SGPT) 11 IU/L 0-32 Not Available [facility] ([facility]) [address] [place], [address], 12/30/2023 10:36:21 12/29/19 24 12/30/2023 HEMOG LOBIN A1C hemoglobin A1C 7.1 % 4.8-5. 6 above high normal Predi abete s: 5.7 - 6.4 Diabe harinder: >6.4 Glyce tristan contr ol for adult s with diabe harinder: <7.0 Not Available [facility] ([facility]) [address] [place], [address], 12/30/2023 10:36:22 12/29/19 24 12/30/2023 TSH TSH 3.690 uIU/m L 0.450- 4.500 Not Available [facility] ([facility]) [address] [facility], [place], [address], 12/30/2023 10:36:23 12/29/19 24 12/30/2023 CBC WITH DIFFE RENTI AL/PL ATELE T WBC 8.9 x10e3 /uL 3.4-10 .8 Not Available [facility] ([facility]) [address] [place], [address], 12/30/2023 10:36:24 12/29/19 24 12/30/2023 CBC WITH DIFFE RENTI AL/PL ATELE T RBC 5.27 x10e6 /uL 3.77-5 .28 Not Available [facility] ([facility]) [address] [facility], [place], [address], 12/30/2023 10:36:24 12/29/19 24 12/30/2023 CBC WITH DIFFE RENTI AL/PL ATELE T hemoglobin 16.1 g/dL 11.1-1 5.9 above high normal Not Available [facility] ([facility]) [address] [facility], [place], [address], 12/30/2023 10:36:24 12/29/19 24 12/30/2023 CBC WITH DIFFE RENTI AL/PL ATELE T hematocrit 49.7 % 34.0-4 6.6 above high normal Not Available [facility] ([facility]) [address] [facility], [place], [address], 12/30/2023 10:36:24 12/29/19 24 12/30/2023 CBC WITH DIFFE RENTI AL/PL ATELE T MCV 94 fL 79-97 Not Available [facility] ([facility]) [address] [place], [address], 12/30/2023 10:36:24 12/29/19 24 12/30/2023 CBC WITH DIFFE RENTI AL/PL ATELE T MCH 30.6 pg 26.6-3 3.0 Not Available [facility] ([facility]) [address] [place], [address], 12/30/2023 10:36:24 12/29/19 24 12/30/2023 CBC WITH DIFFE RENTI AL/PL ATELE T MCHC 32.4 g/dL 31.5-3 5.7 Not Available [facility] ([facility]) [address] [facility], [place], [address], 12/30/2023 10:36:24 12/29/19 24 12/30/2023 CBC WITH DIFFE RENTI AL/PL ATELE T RDW 14.8 % 11.7-1 5.4 Not Available [facility] ([facility]) [address] [facility], [place], [address], 12/30/2023 10:36:24 12/29/19 24 12/30/2023 CBC WITH DIFFE RENTI AL/PL ATELE T platelets 286 x10e3 /uL 150-45 0 Not Available [facility] ([facility]) [address] [facility], [place], [address], 12/30/2023 10:36:24 12/29/19 24 12/30/2023 CBC WITH DIFFE RENTI AL/PL ATELE T neutrophils 60 % notest ab. Not Available [facility] ([facility]) [address] [facility], [place], [address], 12/30/2023 10:36:24 12/29/19 24 12/30/2023 CBC WITH DIFFE RENTI AL/PL ATELE T lymphs 25 % notest ab. Not Available [facility] ([facility]) [address] [facility], [place], [address], 12/30/2023 10:36:24 12/29/19 24 12/30/2023 CBC WITH DIFFE RENTI AL/PL ATELE T monocytes 9 % notest ab. Not Available [facility] ([facility]) [address] [facility], [place], [address], 12/30/2023 10:36:24 12/29/19 24 12/30/2023 CBC WITH DIFFE RENTI AL/PL ATELE T eos 4 % notest ab. Not Available [facility] ([facility]) [address] [facility], [place], [address], 12/30/2023 10:36:24 12/29/19 24 12/30/2023 CBC WITH DIFFE RENTI AL/PL ATELE T basos 1 % notest ab. Not Available [facility] ([facility]) [address] [facility], [place], [address], 12/30/2023 10:36:24 12/29/19 24 12/30/2023 CBC WITH DIFFE RENTI AL/PL ATELE T neutrophils (absolute) 5.5 x10e3 /uL 1.4-7. 0 Not Available [facility] ([facility]) [address] [facility], [place], [address], 12/30/2023 10:36:24 12/29/19 24 12/30/2023 CBC WITH DIFFE RENTI AL/PL ATELE T lymphs (absolute) 2.2 x10e3 /uL 0.7-3. 1 Not Available [facility] ([facility]) [address] [place], [address], 12/30/2023 10:36:24 12/29/19 24 12/30/2023 CBC WITH DIFFE RENTI AL/PL ATELE T monocytes(ab solute) 0.8 x10e3 /uL 0.1-0. 9 Not Available [facility] ([facility]) [address] [place], [address], 12/30/2023 10:36:24 12/29/19 24 12/30/2023 CBC WITH DIFFE RENTI AL/PL ATELE T eos (absolute) 0.3 x10e3 /uL 0.0-0. 4 Not Available [facility] ([facility]) [address] [facility], [place], [address], 12/30/2023 10:36:24 12/29/19 24 12/30/2023 CBC WITH DIFFE RENTI AL/PL ATELE T baso (absolute) 0.1 x10e3 /uL 0.0-0. 2 Not Available [facility] ([facility]) [address] [place], [address], 12/30/2023 10:36:24 12/29/19 24 12/30/2023 CBC WITH DIFFE RENTI AL/PL ATELE T immature granulocytes 1 % notest ab. Not Available [facility] ([facility]) [address] [facility], [place], [address], 12/30/2023 10:36:24 12/29/19 24 12/30/2023 CBC WITH DIFFE RENTI AL/PL ATELE T immature grans (abs) 0.1 x10e3 /uL 0.0-0. 1 Not Available [facility] ([facility]) [address] [facility], [place], [address], 12/30/2023 10:36:24 05/14/20 24 05/15/2024 LIPID PANEL cholesterol, total 147 mg/dL 100-19 9 Not Available [facility] ([facility]) [address] [facility], [place], [address], 05/15/2024 04:11:38 05/14/20 24 05/15/2024 LIPID PANEL triglyceride s 438 mg/dL 0-149 above high normal Not Available [facility] ([facility]) [address] [facility], [place], [address], 05/15/2024 04:11:38 05/14/20 24 05/15/2024 LIPID PANEL HDL cholesterol 43 mg/dL >39 Not Available [facility] ([facility]) [address] [facility], [place], [address], 05/15/2024 04:11:38 05/14/20 24 05/15/2024 LIPID PANEL VLDL cholesterol ion 63 mg/dL 5-40 above high normal Not Available [facility] ([facility]) [address] [facility], [place], [address], 05/15/2024 04:11:38 05/14/20 24 05/15/2024 LIPID PANEL LDL chol calc ([facility]) 41 mg/dL 0-99 Not Available [facility] ([facility]) [address] [facility], [place], [address], 05/15/2024 04:11:38 05/14/20 05/15/2024 COMP. METAB OLIC PANEL (14) glucose 95 mg/dL 70-99 Not Available [facility] ([facility]) [address] [place], [address], 05/15/2024 04:11:39 05/14/20 24 05/15/2024 COMP. METAB OLIC PANEL (14) BUN 22 mg/dL 8-27 Not Available [facility] ([facility]) [address] [place], [address], 05/15/2024 04:11:39 05/14/20 24 05/15/2024 COMP. METAB OLIC PANEL (14) creatinine 1.36 mg/dL 0.57-1 .00 above high normal Not Available [facility] ([facility]) [address] [place], [address], 05/15/2024 04:11:39 05/14/20 24 05/15/2024 COMP. METAB OLIC PANEL (14) eGFR 41 mL/mi n/1.7 3 >59 below low normal Not Available [facility] ([facility]) [address] [place], [address], 05/15/2024 04:11:39 05/14/20 24 05/15/2024 COMP. METAB OLIC PANEL (14) BUN/creatini ne ratio 16 12-28 Not Available [facility] ([facility]) [address] [place], [address], 05/15/2024 04:11:39 05/14/20 24 05/15/2024 COMP. METAB OLIC PANEL (14) sodium 140 mmol/ L 134-14 4 Not Available [facility] ([facility]) [address] [place], [address], 05/15/2024 04:11:39 05/14/20 24 05/15/2024 COMP. METAB OLIC PANEL (14) potassium 5.3 mmol/ L 3.5-5. 2 above high normal Not Available [facility] ([facility]) [address] [place], [address], 05/15/2024 04:11:39 05/14/20 24 05/15/2024 COMP. METAB OLIC PANEL (14) chloride 101 mmol/ L 96-106 Not Available [facility] ([facility]) [address] [place], [address], 05/15/2024 04:11:39 05/14/20 24 05/15/2024 COMP. METAB OLIC PANEL (14) carbon dioxide, total 24 mmol/ L 20-29 Not Available [facility] ([facility]) [address] [place], [address], 05/15/2024 04:11:39 05/14/20 24 05/15/2024 COMP. METAB OLIC PANEL (14) calcium 9.8 mg/dL 8.7-10 .3 Not Available [facility] ([facility]) [address] [place], [address], 05/15/2024 04:11:39 05/14/20 24 05/15/2024 COMP. METAB OLIC PANEL (14) protein, total 6.8 g/dL 6.0-8. 5 Not Available [facility] ([facility]) [address] [place], [address], 05/15/2024 04:11:39 05/14/20 24 05/15/2024 COMP. METAB OLIC PANEL (14) albumin 3.7 g/dL 3.8-4. 8 below low normal Not Available [facility] ([facility]) [address] [place], [address], 05/15/2024 04:11:39 05/14/20 24 05/15/2024 COMP. METAB OLIC PANEL (14) globulin, total 3.1 g/dL 1.5-4. 5 Not Available [facility] ([facility]) [address] [place], [address], 05/15/2024 04:11:39 05/14/20 24 05/15/2024 COMP. METAB OLIC PANEL (14) bilirubin, total 0.5 mg/dL 0.0-1. 2 Not Available [facility] ([facility]) [address] [place], [address], 05/15/2024 04:11:39 05/14/20 24 05/15/2024 COMP. METAB OLIC PANEL (14) alkaline phosphatase 106 IU/L 44-121 Not Available [facility] ([facility]) [address] [place], [address], 05/15/2024 04:11:39 05/14/20 24 05/15/2024 COMP. METAB OLIC PANEL (14) AST (SGOT) 20 IU/L 0-40 Not Available [facility] ([facility]) [address] [place], [address], 05/15/2024 04:11:39 05/14/20 24 05/15/2024 COMP. METAB OLIC PANEL (14) ALT (SGPT) 15 IU/L 0-32 Not Available [facility] ([facility]) [address] [place], [address], 05/15/2024 04:11:39 05/14/20 24 05/15/2024 HEMOG LOBIN A1C hemoglobin A1C 6.9 % 4.8-5. 6 above high normal Predi abete s: 5.7 - 6.4 Diabe harinder: >6.4 Glyce tristan contr ol for adult s with diabe harinder: <7.0 Not Available [facility] ([facility]) [address] [place], [address], 05/15/2024 04:11:41 05/14/20 24 05/15/2024 TSH TSH 2.530 uIU/m L 0.450- 4.500 Not Available [facility] ([facility]) [address] [facility], [place], [address], 05/15/2024 04:11:42 05/14/20 24 05/14/2024 CBC WITH DIFFE RENTI AL/PL ATELE T WBC 10.1 x10e3 /uL 3.4-10 .8 Not Available [facility] ([facility]) [address] [facility], [place], [address], 05/15/2024 04:11:43 05/14/20 24 05/14/2024 CBC WITH DIFFE RENTI AL/PL ATELE T RBC 5.12 x10e6 /uL 3.77-5 .28 Not Available [facility] ([facility]) [address] [facility], [place], [address], 05/15/2024 04:11:43 05/14/20 24 05/14/2024 CBC WITH DIFFE RENTI AL/PL ATELE T hemoglobin 15.6 g/dL 11.1-1 5.9 Not Available [facility] ([facility]) [address] [facility], [place], [address], 05/15/2024 04:11:43 05/14/20 24 05/14/2024 CBC WITH DIFFE RENTI AL/PL ATELE T hematocrit 48.6 % 34.0-4 6.6 above high normal Not Available [facility] ([facility]) [address] [facility], [place], [address], 05/15/2024 04:11:43 05/14/20 24 05/14/2024 CBC WITH DIFFE RENTI AL/PL ATELE T MCV 95 fL 79-97 Not Available [facility] ([facility]) [address] [place], [address], 05/15/2024 04:11:43 05/14/20 24 05/14/2024 CBC WITH DIFFE RENTI AL/PL ATELE T MCH 30.5 pg 26.6-3 3.0 Not Available [facility] ([facility]) [address] [facility], [place], [address], 05/15/2024 04:11:43 05/14/20 24 05/14/2024 CBC WITH DIFFE RENTI AL/PL ATELE T MCHC 32.1 g/dL 31.5-3 5.7 Not Available [facility] ([facility]) [address] [facility], [place], [address], 05/15/2024 04:11:43 05/14/20 24 05/14/2024 CBC WITH DIFFE RENTI AL/PL ATELE T RDW 14.2 % 11.7-1 5.4 Not Available [facility] ([facility]) [address] [facility], [place], [address], 05/15/2024 04:11:43 05/14/20 24 05/14/2024 CBC WITH DIFFE RENTI AL/PL ATELE T platelets 302 x10e3 /uL 150-45 0 Not Available [facility] ([facility]) [address] [facility], [place], [address], 05/15/2024 04:11:43 05/14/20 24 05/14/2024 CBC WITH DIFFE RENTI AL/PL ATELE T neutrophils 62 % notest ab. Not Available [facility] ([facility]) [address] [facility], [place], [address], 05/15/2024 04:11:43 05/14/20 24 05/14/2024 CBC WITH DIFFE RENTI AL/PL ATELE T lymphs 24 % notest ab. Not Available [facility] ([facility]) [address] [place], [address], 05/15/2024 04:11:43 05/14/20 24 05/14/2024 CBC WITH DIFFE RENTI AL/PL ATELE T monocytes 8 % notest ab. Not Available [facility] ([facility]) [address] [facility], [place], [address], 05/15/2024 04:11:43 05/14/20 24 05/14/2024 CBC WITH DIFFE RENTI AL/PL ATELE T eos 4 % notest ab. Not Available [facility] ([facility]) [address] [facility], [place], [address], 05/15/2024 04:11:43 05/14/20 24 05/14/2024 CBC WITH DIFFE RENTI AL/PL ATELE T basos 1 % notest ab. Not Available [facility] ([facility]) [address] [facility], [place], [address], 05/15/2024 04:11:43 05/14/20 24 05/14/2024 CBC WITH DIFFE RENTI AL/PL ATELE T neutrophils (absolute) 6.4 x10e3 /uL 1.4-7. 0 Not Available [facility] ([facility]) [address] [facility], [place], [address], 05/15/2024 04:11:43 05/14/20 24 05/14/2024 CBC WITH DIFFE RENTI AL/PL ATELE T lymphs (absolute) 2.4 x10e3 /uL 0.7-3. 1 Not Available [facility] ([facility]) [address] [place], [address], 05/15/2024 04:11:43 05/14/20 24 05/14/2024 CBC WITH DIFFE RENTI AL/PL ATELE T monocytes(ab solute) 0.8 x10e3 /uL 0.1-0. 9 Not Available [facility] ([facility]) [address] [place], [address], 05/15/2024 04:11:43 05/14/20 24 05/14/2024 CBC WITH DIFFE RENTI AL/PL ATELE T eos (absolute) 0.5 x10e3 /uL 0.0-0. 4 above high normal Not Available [facility] ([facility]) [address] [facility], [place], [address], 05/15/2024 04:11:43 05/14/20 24 05/14/2024 CBC WITH DIFFE RENTI AL/PL ATELE T baso (absolute) 0.1 x10e3 /uL 0.0-0. 2 Not Available [facility] ([facility]) [address] [facility], [place], [address], 05/15/2024 04:11:43 05/14/20 24 05/14/2024 CBC WITH DIFFE RENTI AL/PL ATELE T immature granulocytes 1 % notest ab. Not Available [facility] ([facility]) [address] [facility], [place], [address], 05/15/2024 04:11:43 05/14/20 24 05/14/2024 CBC WITH DIFFE RENTI AL/PL ATELE T immature grans (abs) 0.1 x10e3 /uL 0.0-0. 1 Not Available [facility] ([facility]) [address] [facility], [place], [address], 05/15/2024 04:11:43 10/03/19 25 10/02/2024 HbA1c (hemo globi n A1c), blood HbA1c 6.2 Not Available In-Office Order Internal Use Only DO Not Attach Compendium DO Not Attach Compendium, Do Not Delete/merge, [id number] 10/02/2024 10:09:18 11/14/19 24 11/09/2023 MAMMO , scree adeola, digit al, bilat eral No observ ation record ed. [email or web address] [facility] [address] [place], [address], 11/15/2023 12:56:40 03/29/20 24 XR, foot, 2 view No observ ation record ed. [email or web address] Not Available 2023 08:49:28 03/29/20 24 XR, ribs, bilat eral No observ ation record ed. [email or web address] Not Available 2023 16:49:12 10/31/19 25 10/30/2024 imagi ng/di agnos tic resul t No observ ation record ed. [facility] [address], [place], [address], 10/31/2024 09:32:43 10/31/19 25 10/30/2024 imagi ng/di agnos tic resul t No observ ation record ed. [facility] [address], [place], [address], 10/31/2024 12:36:39 Result Notes None recorded. Problems Name Problem SNOMED Code Status Onset Date Resolution Date Notes Provider Name and Address Organization Details Recorded Time Type 2 diabetes mellitus 98550808 Active 2017 Sophia Pantoja MD Attn: [address] [place], [address], [facility] 2 09:37:08 [facility] hyper[facility] karin 45985672 Active 2017 Sophia Pantoja MD Attn: [address] [place], [address], [facility] 2 09:37:08 Hyperlip idemia 00292437 Active 2017 Sophia Pantoja MD Attn: [address] [place], [address], [facility] 2 09:37:08 Anxiety disorder 491894881 Active 2017 mild Sophia Pantoja MD Attn: [address] [place], [address], [facility] 2 09:37:08 Herpes zoster 9229157 Active 2017 Sophia Pantoja MD Attn: [address] [place], [address], [place] [facility] 8 10:21:57 Gout 82840648 Active 2017 Sophia Pantoja MD Attn: Hang duggan,[address] [facility], [place], [address], [place] [facility] 2 09:37:08 Thyroid stimulat ing hormone level above referenc e range 081505066 Completed 201706/27/2018 Sophia Pantoja MD Attn: Hang [address]gan,[address] [facility], [place], [address], [place] [facility] 8 10:46:59 Osteoart hritis of knee 310451920 Active 2017 Sophia Pantoja MD Attn: Hang [address]gan,[address] [facility], [place], [address], [place] [facility] 2 09:37:08 Hypothyr oidism 32798266 Active 2017 Sophia Pantoja MD Attn: Hang [address]gan,[address] [facility], [place], [address], [place] [facility] 2 09:37:08 Incision al hernia 723527642 Active 2017 seen by surgeon -no sx per surgeon Sophia Pantoja MD Attn: Hang [address]gan,[address] [facility], [place], [address], [place] [facility] 2 09:37:08 Renal insuffic iency 492978233 Active 2018 -sees nephro Sophia Pantoja MD Attn: Hang duggan,[address] [place] [address], [place], [address], [place] [facility] 4 14:22:47 Daytime somnolen ce 45113257711 0 Completed 201804/18/2019 pending sleep study -seeing Dr.Ahmad Sophia Pantoja MD Attn: Hang [address] [facility], [place], [address], [place] [facility] 9 14:11:48 Edema of lower extremit y 467093187 Active 2018 Sophia Pantoja MD Attn: Hang duggan,[address] [facility], [place], [address], [facility] 2 09:37:08 Obstruct bakari sleep apnea syndrome 58088357 Active 2018 with hypoxia -on oxygen-s ees Dr.Ahmad Sophia Pantoja MD Attn: Hagn duggan,[address] [facility], [place], [address], [place] [facility] 2 09:37:08 Right carotid artery stenosis 48888947808 9100 Active 2019 severe stenosis -CTA-s/p stent on 11/2019-s eeing vascular sx -on plavix Sophia Pantoja MD Attn: Hang [address]gan,[address] [facility], [place], [address], [facility] 2 09:37:08 Coronary arterios clerosis 62997796 Active 2019 cardiac cath 07/22-mod erate stenosis -medical rx -sees cardio Sophia Pantoja MD Attn: Hang [address]gan,[address] [facility], [place], [address], [place] [facility] 2 09:37:08 Peripher al vascular disease 444815289 Active 2019 s/p L /atherec nixon of [facility] 04/2020 Sophia Pantoja MD Attn: Hang duggan,[address] [facility], [place], [address], [place] [facility] 2 09:37:08 Thyroid nodule 706509138 Active [address] - us thyroid 08/2019 Sophia Pantoja MD Attn: Hang duggan,[address] [facility], [place], [address], [place] [facility] 2 09:37:08 Chronic obstruct bakari pulmonar y disease 74203364 Active 2021 CT chest 05/25-mi ld emphysem a /constri ctive bronchio litis Sophia Pantoja MD Attn: Hang [address] [facility], [place], [address], [facility] 3 14:20:04 Obesity 009522833 Active 2021 Sophia Pantoja MD Attn: Hang [address] [facility], [place], [address], [facility] 2 14:12:12 Pruritic rash 60533110 Active 2021 on R/lower leg- sees derm Sophia Pantoja MD Attn: Hang [address] [facility], [place], [address], [facility] 2 10:03:20 Occult blood detected in feces 00815182 Active 2022 Sophia Pantoja MD Attn: Hang [address] [facility], [place], [address], [facility] 3 11:47:20 Problem Notes None recorded. Procedures Surgical History Date Name Laterality Status Provider Name and Address Organization Details Recorded Time 07/18/19 24 Colonoscopy with biopsy completed Alix Lowery MA [facility] 08/24/2023 11:51:21 04/21/20 20 insertion of stent into vein completed Yazmin Kitchen [facility] 04/29/2020 09:24:01 03/03/20 20 insertion of stent into vein completed Yazmin Kitchen [facility] 04/29/2020 09:23:53 11/19/19 20 repair of artery completed Alix Lowery MA [facility] 01/13/2020 09:24:11 07/03/19 13 Colonoscopy with biopsy completed Alix Lowery [facility] 03/13/2018 11:13:11 Hernia Repair completed UMESH Cifuentes [facility] 12/08/2017 09:58:03 Dilation and Curettage completed UMESH Cifuentes [place] [facility] 12/08/2017 09:58:13 Total hysterectomy completed UMESH Cifuentes [facility] 12/08/2017 09:58:18 Imaging Results None recorded. Procedure Notes None recorded. Medical Equipment None Reported. Allergies No known drug allergies Medications Name Sig Start Date Stop Date Status Note LastModified by Organization Details LastModified Time losartan 50 mg tablet TAKE 1 TABLET BY MOUTH ONCE DAILY active Not Available Not Available No t Available atorvasta tin 40 mg tablet TAKE 1 TABLET BY MOUTH ONCE DAILY active Not Available Not Available No t Available clotrimaz ole 10 mg darrius DISSOLVE 1 TABLET BY MOUTH THREE TIMES DAILY FOR 5 DAYS 09/05 completed Not Available Not Available Not Available terbinafi ne HCl 1 % topical cream APPLY TO THE AFFECTED AND SURROUND ING AREAS OF SKIN BY TOPICAL ROUTE ONCE DAILY 03/24 completed Not Available Not Available Not Available cilostazo l 100 mg tablet TAKE 1 TABLET BY MOUTH TWICE DAILY 07/29 completed not taking Not Available Not Available Not Available nystatin 100,000 unit/mL oral suspensio n Take 5 mL 4 times a day by oral route for 7 days. 09/05 completed Not Available Not Available Not Available doxycycli ne hyclate 100 mg capsule TAKE 1 CAPSULE BY MOUTH ONCE DAILY WITH FOOD 09/05 completed per derm Not Available Not Available Not Available atorvasta tin 20 mg tablet TAKE 2 TABLETS BY MOUTH DAILY 03/13 completed Not Available Not Available Not Available azithromy marcelle 250 mg tablet TAKE 2 TABLETS (500 MG) BY ORAL ROUTE ONCE DAILY FOR 1 DAY THEN 1 TABLET (250 MG) BY ORAL ROUTE ONCE DAILY FOR 4 DAYS 10/25 completed Not Available Not Available Not Available benzonata te 200 mg capsule TAKE 1 CAPSULE BY MOUTH THREE TIMES DAILY NEEDED 01/26 completed not taking Not Available Not Available Not Available valacyclo vir 1 gram tablet TAKE 1 TABLET BY MOUTH EVERY 12 HOURS FOR 1 DAY active Not Available Not Available No t Available cyanocoba sekou (vit B-12) 1,000 mcg tablet TAKE 1 TABLET BY MOUTH ONCE DAILY active Not Available Not Available No t Available acetamino phen 300 mg-codein e 30 mg tablet 04/29 completed not taking Not Available Not Available Not Available clopidogr el 75 mg tablet TAKE 1 TABLET BY MOUTH ONCE DAILY 03/02 completed not taking Not Available Not Available Not Available ciproflox acin 250 mg tablet Take 1 tablet every 12 hours by oral route for 7 days. 03/24 completed Not Available Not Available Not Available tramadol 50 mg tablet TAKE 1 TO 2 TABLETS BY MOUTH EVERY 6 HOURS NEEDED FOR MILD OR MORE SEVERE PAIN. MAX 4 PER DAY 10/02 completed PRN Not Available Not Available Not Available triamcino lone acetonide 0.1 % topical cream APPLY A THIN LAYER TO THE AFFECTED AREA(S) BY TOPICAL ROUTE 2 TIMES PER DAY 03/24 completed Not Available Not Available Not Available spironola ctone 25 mg tablet pt to hold 11/04 completed Not Available Not Available Not Available levothyro xine 25 mcg tablet TAKE 1 TABLET BY MOUTH ONCE DAILY 08/08 completed Not Available Not Available Not Available ceftriaxo ne 1 gram solution for injection 12/12 completed Not Available Not Available Not Available diltiazem 120 mg tablet one tab bid 11/04 completed not taking Not Available Not Available Not Available famotidin e 20 mg tablet TAKE 1 TABLET BY MOUTH TWICE DAILY active Not Available Not Available No t Available levothyro xine 50 mcg tablet Take 1 tablet by mouth once daily 2024 active Not Available Not Available Not Avai lable cephalexi n 500 mg capsule TAKE 1 CAPSULE BY MOUTH THREE TIMES DAILY FOR 7 DAYS 05/14 completed Not Available Not Available Not Available metformin 1,000 mg tablet TAKE 1/2 (ONE-FLORI F) TABLET BY MOUTH ONCE DAILY active Not Available Not Available No t Available ranitidin e 150 mg tablet TAKE 1 TABLET BY MOUTH TWICE DAILY 05/16 completed Not Available Not Available Not Available buspirone 10 mg tablet Take 1 tablet twice a day by oral route as needed. 01/26 completed not taking Not Available Not Available Not Available gabapenti n 300 mg capsule TAKE 1 CAPSULE BY MOUTH ONCE DAILY 05/14 completed pt to hold Not Available Not Available Not Available allopurin ol 300 mg tablet Take 1 tablet by mouth once daily active Not Available Not Available No t Available hydrochlo rothiazid e 25 mg tablet Take 0.5 tablets every day by oral route for 90 days. 03/13 completed Not Available Not Available Not Available furosemid e 20 mg tablet TAKE 1 TABLET BY MOUTH ONCE DAILY NEEDED 11/04 completed hold Not Available Not Available Not Available ergocalci ferol (vitamin D2) 1,250 mcg (50,000 unit) capsule Take 1 capsule by mouth once a week active Not Available Not Available No t Available clobetaso l 0.05 % topical ointment APPLY TOPICALL Y TO RIGHT ORTEGA ONCE DAILY AT BEDTIME 10/02 completed derm Not Available Not Available Not Available albuterol sulfate HFA 90 mcg/actua tion aerosol inhaler INHALE 2 PUFFS BY MOUTH EVERY 4 HOURS NEEDED active Not Available Not Available No t Available benazepri l 10 mg tablet TAKE 1 TABLET BY MOUTH ONCE DAILY 07/12 completed on hold due to renal failure Not Available Not Available Not Available fluticaso ne propionat e 50 mcg/actua tion nasal spray,faiza pension USE 2 SPRAY(S) IN EACH NOSTRIL ONCE DAILY active Not Available Not Available No t Available clotrimaz ole 1 % topical cream APPLY TOPICALL Y TO AFFECTED AND SURROUND ING AREAS OF SKIN TWICE DAILY (ONCE IN THE MORNING AND ONCE IN THE EVENING) 10/02 completed Not Available Not Available Not Available loratadin e 10 mg tablet Take 1 tablet every day by oral route. 12/12 completed Not Available Not Available Not Available Pneumovax -23 25 mcg/0.5 mL injection syringe 06/27 completed Not Available Not Available Not Available escitalop sam 10 mg tablet Take 1 tablet by mouth once daily 2024 active Not Available Not Available Not Avai lable nitrofura ntoin monohydra te/macroc rystals 100 mg capsule TAKE 1 CAPSULE BY MOUTH EVERY 12 HOURS FOR 7 DAYS 08/24 completed Not Available Not Available Not Available Aspir-81 active Not Available Not Avai lable Not Available Januvia 50 mg tablet TAKE 1 TABLET BY MOUTH ONCE DAILY 2024 active Not Available Not Available Not Avai lable hydrochlo rothiazid e 12.5 mg tablet TAKE 1 TABLET BY MOUTH ONCE DAILY 10/25 completed hold due to renal 09/20 Not Available Not Available Not Available FeroSul 325 mg (65 mg iron) tablet TAKE 1 TABLET BY MOUTH TWICE DAILY 05/18 completed per pulmo- pt to d/c it Not Available Not Available Not Available fenofibra te 54 mg tablet TAKE 1 TABLET BY MOUTH ONCE DAILY 08/27 completed Not Available Not Available Not Available Prevnar 13 (PF) 0.5 mL intramusc ular syringe 12/08 completed Not Available Not Available Not Available Vascepa 1 gram capsule TAKE 2 CAPSULES BY MOUTH TWICE DAILY active Not Available Not Available No t Available Anoro Ellipta 62.5 mcg-25 mcg/actua tion powder for inhalatio n INHALE 1 PUFF BY MOUTH ONCE DAILY active Not Available Not Available No t Available Jardiance 10 mg tablet TAKE 1 TABLET BY MOUTH ONCE DAILY 2024 active 90 day Not Available Not Available Not Avai lable Fluzone High-Dose 8904-5884 (PF) 180 mcg/0.5 mL intramusc ular syringe 12/08 completed Not Available Not Available Not Available Shingrix (PF) 50 mcg/0.5 mL intramusc ular suspensio n, kit 01/12 completed Not Available Not Available Not Available Xarelto 2.5 mg tablet TAKE 1 TABLET BY MOUTH TWICE DAILY FOR CARDIOVA SCULAR PROTECTI ON active Not Available Not Available No t Available Fluzone High-Dose 2018- (PF) 180 mcg/0.5 mL intramusc ular syringe 06/11 completed Not Available Not Available Not Available Fluzone High-Dose Quad (PF) 240 mcg/0.7 mL IM syringe 04/29 completed Not Available Not Available Not Available Arthritis Pain (diclofen ac) 1 % topical gel APPLY 2 GRAMS TOPICALL Y TO AFFECTED AREA(S) THREE TIMES DAILY active Not Available Not Available No t Available Vitals Date Recorded Body height Body mass index (BMI) Body weight Heart rate Respiratory rate Body temperature Oxygen saturation Oxygen saturation in Arterial blood by Pulse oximetry Inhaled oxygen flow rate Systolic blood pressure Diastolic blood pressure Provider Name and Address Organization Details Last Updated DateTime 4 149.86 cm 44.5 kg/m2 40810.0 4 g 69 /min 14 /min 97.3 [degF] 93 % 93 % 3 L/min 129 mm[Hg] 72 mm[Hg] Alix Lowery [place] - [facility] 4 11:55:12 Date Recorded Body height Body mass index (BMI) Body weight Oxygen saturation Oxygen saturation in Arterial blood by Pulse oximetry Inhaled oxygen flow rate Heart rate Respiratory rate Body temperature Systolic blood pressure Diastolic blood pressure Provider Name and Address Organization Details Last Updated DateTime 5 149.86 cm 40.9 kg/m2 87079.1 7 g 91 % 91 % 2 L/min 62 /min 16 /min 97.2 [degF] 104 mm[Hg] 70 mm[Hg] Alix Lowery MA [facility] 5 09:39:50 Date Recorded Body height Body mass index (BMI) Body weight Respiratory rate Body temperature Oxygen saturation Oxygen saturation in Arterial blood by Pulse oximetry Inhaled oxygen flow rate Heart rate Systolic blood pressure Diastolic blood pressure Provider Name and Address Organization Details Last Updated DateTime 4 149.86 cm 44.4 kg/m2 61705.9 6 g 14 /min 97.8 [degF] 93 % 93 % 3 L/min 74 /min 133 mm[Hg] 84 mm[Hg] Geovanna Garcia MA [facility] 4 11:30:09 Date Recorded Body height Body mass index (BMI) Body weight Heart rate Respiratory rate Body temperature Oxygen saturation Oxygen saturation in Arterial blood by Pulse oximetry Inhaled oxygen flow rate Systolic blood pressure Diastolic blood pressure Provider Name and Address Organization Details Last Updated DateTime 4 149.86 cm 43.2 kg/m2 69973.4 1 g 67 /min 14 /min 97.3 [degF] 97 % 97 % 3 L/min 115 mm[Hg] 78 mm[Hg] Clarissa Riggins MA [facility] 4 13:59:41 Date Recorded Body height Body mass index (BMI) Body weight Heart rate Respiratory rate Body temperature Oxygen saturation Oxygen saturation in Arterial blood by Pulse oximetry Inhaled oxygen flow rate Systolic blood pressure Diastolic blood pressure Provider Name and Address Organization Details Last Updated DateTime 4 149.86 cm 42.9 kg/m2 45453.0 2 g 71 /min 14 /min 97.2 [degF] 92 % 92 % 3 L/min 123 mm[Hg] 79 mm[Hg] Alix Lowery MA [facility] 4 10:13:46 Social History Question Answer Notes LastModified by Organizat ion Details LastModified Time Tobacco Smoking Status Former Smoker Quit 2002 Alix maradiaga [facility] 03/13/2018 11:11:25 Do You Have An Advance Directive? No Information not available 10/28/2020 Are You Blind Or Do You Have Difficulty Seeing? Yes Glasses Information not available 08/24/2023 What Is Your Level Of Caffeine Consumption? Moderate Tea, Coffee Information not available 01/26/2021 How Much Tobacco Do You Chew? None Information not available 12/08/2017 In The 14 Days Before Symptom Onset, Have You Had Close Contact With A Laboratory-confir med COVID-19 While That Case Was Ill? No Information not available 11/05/2019 In The 14 Days Before Symptom Onset, Have You Had Close Contact With A Person Who Is Under Investigation For COVID-19 While That Person Was Ill? No Information not available 11/05/2019 Have You Been To An Area Known To Be High Risk For COVID-19? No Information not available 11/05/2019 Are You Deaf Or Do You Have Serious Difficulty Hearing? No Information not available 10/28/2020 What Type Of Diet Are You Following? REGULAR Trying To Eat Healthy Information not available 12/12/2018 Which Illicit Or Recreational Drugs Have You Used? None Information not available 12/08/2017 Education 12 Information no t available 12/08/2017 What Is The Highest Grade Or Level Of School You Have Completed Or The Highest Degree You Have Received? [id number] Information not available 01/26/2021 Are There Any Guns Present In Your Home? No Information not available 12/12/2018 Hard Of Hearing Or Deaf In One Or Both Ears? No Information not available 12/08/2017 Legally Blind In One Or Both Eyes? No Information no t available 12/08/2017 Marital Status Single Informatio n not available 12/08/2017 What Was The Date Of Your Most Recent Tobacco Screening? 10/02/2024 Information not available 10/02/2024 Performs Monthly Self-breast Exam? Yes Information no t available 11/05/2019 What Is Your Relationship Status? Single Information not available 10/28/2020 Do You Use Your Seat Belt Or Car Seat Routinely? Yes Information not available 10/28/2020 Seat Belts Used Routinely Yes Information not available 12/12/2018 Smoke Alarm In Home Yes Information not available 06/11/2019 Do You Have Smoke And Carbon Monoxide Detectors In Your Home? Yes Information not available 10/28/2020 At What Age Did You Start Smoking Tobacco? 17 Information not available 01/16/2019 How Much Tobacco Do You Smoke? 1 PPD Information not available 12/08/2017 General Stress Level Low Information not available 06/27/2018 Do You Use Sunscreen Routinely? Yes Information not available 12/12/2018 How Many Years Have You Smoked Tobacco? 20 Information not available 12/08/2017 Sex: Unknown Functional Status Question Answer Note LastModified by Organizat ion Details LastModified Time Do you use any illicit or recreational drugs? No Information not available 10/28/2020 Do you or have you ever used any other forms of tobacco or nicotine? No Information not available 10/28/2020 What is your level of alcohol consumption? None twice a year glass of wine Information not available 05/18/2023 Do you or have you ever used smokeless tobacco? Never used smokeless tobacco Information not available 01/31/2019 Are you currently employed? No Information not available 01/26/2021 Are you able to care for yourself? Yes Information not available 10/28/2020 What is your occupation? retired Information not available 12/08/2017 Do you or have you ever used e-cigarettes or vape? Never used electronic cigarettes Information not available 01/31/2019 What is your exercise level? None walking Information not available 05/14/2024 Mental Status Question Answer Note LastModified by Organization D etails LastModified Time Do you feel stressed (tense, restless, nervous, or anxious, or unable to sleep at night)? [id number] Information not available 10/28/2020 Family History Relationship Description Onset Age of this Age Resolved Age Notes LastModified by Organization Details LastModified Time Mother Diabetes mellitus [email or web address] Not available 2017 09:58:33 Mother Heart disease [email or web address] Not available 2017 09:58:39 Mother Hypertensive disorder [email or web address] Not available 2017 09:58:46 Medical History Condition Response Coronary Artery Disease N Atrial Fibrillation N High Blood Pressure Y Depression N COPD Y Blood Clots N Anxiety Disorder Y Muscle, Joint, or Bone Problems Y Acid Reflux (GERD) Y Cancer N Stroke N High Cholesterol Y Liver Disease N Headaches N Kidney or Bladder Problems N Thyroid Problems Y GI Problems N Skin Problems N Anemia N Heart Attack ([place]) N Diabetes Y Seizures/Epilepsy N Asthma N Allergies N Hepatitis N Heart Failure N Osteoporosis N Gynecological HistoryNo gynecological history recorded. Obstetrics History GPAL:G 0 P 0 0 0 0 Immunizations Vaccine Type Date Status Note Provider Nam e and Address Organization Details Recorded Time pneumococcal polysaccharide PPV23 8 completed Sophia Pantoja MD Attn: [address] [place], [address], [place] [facility] 06/27/2018 10:50:55 Influenza, high-dose, trivalent, PF 9 completed BERNICE King, [place] [facility] 06/11/2019 12:09:24 Influenza, high-dose, quadrivalent, PF 0 [place] B[place]ICE [place] [facility] 04/06/2020 10:21:05 SARS-COV-2 (COVID-19) vaccine, UNSPECIFIED 1 [place] B[place] [facility] 10/28/2020 09:03:38 SARS-COV-2 (COVID-19) vaccine, UNSPECIFIED 0 [place] B[place] [facility] 10/28/2020 09:03:52 Influenza, high-dose, quadrivalent, PF 1 [place] [facility] 04/15/2021 09:55:32 COVID-19, mRNA, LNP-S, PF, 30 mcg/0.3 mL dose 1 [place] BERNICE [place] [facility] 09/07/2021 09:28:03 Pneumococcal conjugate PCV20, polysaccharide YIE318 conjugate, adjuvant, PF 2 completed Not Available [facility] 10/07/2022 03:01:02 Influenza, high-dose, quadrivalent, PF 2 completed Yazmin Kitchen null, [place] - [facility] 04/08/2022 12:29:06 Influenza, high-dose, trivalent, PF 4 completed Alix Lowery [place] null, [place] [facility] 04/10/2024 09:24:34 Tdap 8 completed Not Available [facility] 07/20/2019 02:35:26 Influenza, split virus, quadrivalent, preservative 8 completed Not Available [facility] 07/20/2019 02:41:27 Pneumococcal conjugate PCV 13 7 completed Sophia Pantoja MD Attn: [address] [place], [address], [facility] 12/08/2017 10:21:05 Past Encounters Encounter ID Performer Location Encounter Start Date Encounter Closed Date Diagnosis/Indication Diagnosis SNOMED-CT Code Diagnosis ICD10 Code Diagnosis Note [id number] MD Priscila Vazquezhalto (Adult Med) [address] [place] [address] 12/08/2017 09:53:42 12/08/2017 10:49:29 Essential hypertension 83909847 I10 stable on current med Type 2 sapna betes mellitus 19560432 E11.9 continue metformine Hyperlipidemia 96361247 E78.4 pt is not on statinchec k lab and decide on statin Gout 98246266 M10.9 stable on allopurino l Administra tion of diphtheria, pertussis, and tetanus vaccine 516056865 Z23 Herpes zoster 1438430 B0 2.9 continue valtrex [id number] [facility] [address] [place] [address] 03/13/2018 10:26:50 03/14/2018 16:18:22 Administration of influenza vaccine 17464624 Z23 Essential hypertension 93066687 I10 stable on current med Type 2 sapna betes mellitus 34943482 E11.9 continue metformine Hyperlipidemia 66378926 E78.4 pt to continue statin Screening mammography 24 505415 Z12.31 Osteoarthr itis of knee 522857276 M17.0 with hand painTry Gabapentin Daytime somnolence 01622 66384 00 R40.0 check sleep study Thyroid st imulating hormone level above reference range 795791905 R79.89 monitor tsh [id number] MD Priscila Vazquezhalto (Adult Med) [address] [place] [address] 06/27/2018 10:31:41 06/27/2018 15:18:18 Essential hypertension 77665977 I10 stable on current med Type 2 sapna betes mellitus 39291568 E11.9 continue metformin Hyperlipidemia 13070667 E78.2 continue atorvastat in Hypothyroidism 92050158 E03.9 continue levothyrox in 25 mcg daily Daytime somnolence 23234 15998 00 R40.0 check sleep study Osteoarthr itis of knee 597331260 M17.0 with hand painIncrea se Gabapentin bid [id number] MD Salazar Vazquez (Adult Med) [address] [place] [address] 08/08/2018 09:39:42 08/09/2018 11:25:20 Hyperlipidemia 71007807 E78.2 continue atorvastat inAdd low dose fenofibrat e Renal insufficiency 7231 56443 N28.9 avoid nsaidkeep good hydration Leukocytosis 344117855 D 72.829 pt denied any symptoms except mild cough /nasal congestion Hypothyroidism 59684793 E03.9 pt to increase levothyrox in 50 mcg daily [id number] [facility] [address] [place] [address] 10/16/2018 09:24:04 10/17/2018 09:32:47 Hypoxia 070556299 R09.02 O2 sat dropped to 89% ambulating from waiting room to exam room. She has been feeling more short of breath for past week, worse w/ laying down and with exertion. Acute bronchitis 3401114 2 J20.9 she has hx of pneumonia 2 yrs ago, with hypoxia, recommend getting CXR, start abx, use inhaler for dyspnea/co ughing spasms. Posterior rhinorrhea 758 86514 R09.82 Take anti-hista mine in AM, use flonase before bedtime. Deviated nasal septum 12 4756026 J34.2 right side difficult to breathe through and always has felt congested. She can breathe easier when she pulls on right maxillary away from midline. [id number] MD Salazar Vazquez (Adult Med) [address] [place] [address] 10/25/2018 10:36:32 10/26/2018 14:05:16 Essential hypertension 54921273 I10 stable on Benazepril discontinu e HCTZ due to renal insufficie ncy Type 2 sapna betes mellitus 50625826 E11.9 continue metformin once daily with close monitoring of kidney function Hyperlipidemia 73872713 E78.2 continue atorvastat inAdd low dose fenofibrat e Hypothyroidism 08414536 E03.9 noncomplia nt with med-counsl ledpt to continue levothyrox in 50 mcg daily Renal insufficiency 7231 49572 N28.9 avoid nsaidkeep good hydration Daytime somnolence 46859 49597 00 R40.0 pt is going for sleep study today Gout 75868287 M10.9 stable on allopurino l [id number] MD Salazar Vazquez (Adult Med) [address] [place] [address] 12/12/2018 09:22:53 12/13/2018 08:23:23 History of urinary tract infection 8910862530 107 Z87.440 with sepsis due to E.coli -improvedp t was rxed with iv antibiotic through picc line which was removed subsequent ly Daytime somnolence 10680 69348 00 R40.0 with hypoxia -pt is on oxygen 1 llpt is going for sleep study in 01/18pt is seeing Renal insufficiency 7231 12422 N28.9 avoid nsaidkeep good hydrationb enazepril is on holdconsid er nephro referral in future Type 2 sapna betes mellitus 00032778 E11.9 continue metformin once daily with close monitoring of kidney function Incisional hernia 955454 000 K43.2 Refer to surgeon [id number] MD Salazar Vazquez (Adult Med) [address] [place] [address] 01/16/2019 11:13:57 01/18/2019 08:57:36 Daytime somnolence 0966412303 00 R40.0 with hypoxia -pt is on oxygen 1 Lpt is going for sleep study in 01/31/19pt is seeing Edema of l ower extremity 268063030 R60.0 with hyperkalem iapossibly due to dependent edemaEleva te legs / low salt diet /loose wtpt to go for sleep study which is still pending [id number] [facility] [address] [facility] [place] [address] 01/31/2019 10:07:16 02/04/2019 08:42:50 Essential hypertension 92120477 I10 stable on DiltiazemB enazepril is on holdDiscon tinued HCTZ due to renal insufficie ncy Type 2 sapna betes mellitus 59403841 E11.9 continue metformin once daily with close monitoring of kidney function Hypothyroidism 11976383 E03.9 stablept to continue levothyrox in 50 mcg daily Renal insufficiency 7231 27423 N28.9 improvinga void nsaidkeep good hydrationb enazepril is on holdconsid er nephro referral in future Daytime somnolence 84540 24376 00 R40.0 with hypoxia -pt is on oxygen 1 Lpt is going for sleep study in few wkspt is seeing Edema of l ower extremity 539555943 R60.0 with hyperkalem ia-gentle diuresis -monitor renal functionpo ssibly due to dependent edemaEleva te legs / low salt diet /loose wtpt to go for sleep study which is still pending [id number] MD Priscila Vazquezhalto (Adult Med) [address] [facility] [place] [address] 02/21/2019 09:21:29 02/21/2019 09:22:32 [id number] [facility] [address] [place] [address] 04/17/2019 08:56:56 04/18/2019 16:15:53 Essential hypertension 87971561 I10 stable on DiltiazemB enazepril is on holdDiscon tinued HCTZ due to renal insufficie ncy Type 2 sapna betes mellitus 51634576 E11.9 continue metformin once daily with close monitoring of kidney function Hypothyroidism 69121516 E03.9 stablept to continue levothyrox in 50 mcg daily Edema of l ower extremity 891468801 R60.0 with hyperkalem ia-gentle diuresis -monitor renal functionpo ssibly due to dependent edemaEleva te legs / low salt diet /loose wtpt to go for sleep study which is still pending Renal insufficiency 7231 75604 N28.9 improvinga void nsaidbenaz epril is on holdconsid er nephro referral in future Obstructiv e sleep apnea syndrome 83960087 G47.33 with hypoxia -pt is on oxygen 1 Lpt is seeing [id number] MD Salazar Vazquez (Adult Med) [address] [place] [address] 06/11/2019 11:33:02 06/12/2019 09:25:56 Chest discomfort 881205489 R07.89 check ekg /cxrcheck stress test due to multiple risk factorspt does not want to do pharmacolo gical stress test or EST. Anxiety disorder 06 F41.9 pt to start lexapro [id number] MD Salazar Vazquez (Adult Med) [address] [place] [address] 07/12/2019 09:34:17 07/15/2019 09:57:01 Coronary arteriosclerosis 32480047 I25.10 s/p cardiac cath 07/22-moder ate stenosis -medical mxpt is seeing cardio who started pt on aldactone and vascepa Right reyes tid artery stenosis 4881293583 99351 I65.21 pt is going for CTA per cardio Anxiety disorder 9530949 06 F41.9 Improving .pt is on lexapro [id number] MD Salazar Vazquez (Adult Med) [address] [place] [address] 08/20/2019 10:31:19 08/28/2019 17:08:06 [id number] MD Salazar Vazquez (Adult Med) [address] [place] [address] 08/27/2019 09:03:19 08/28/2019 09:01:15 Essential hypertension 75917111 I10 stable on DiltiazemB enazepril is on holdDiscon tinued HCTZ due to renal insufficie ncy Type 2 sapna betes mellitus 12675480 E11.9 continue metformin once daily with close monitoring of kidney function Hyperlipidemia 80839202 E78.2 continue atorvastat invascepa is added by cardio -will d/c fenofibrat e for now . Anxiety disorder F41.9 Improving .pt is on lexapro Hypothyroidism 18595983 E03.9 stablept to continue levothyrox in 50 mcg daily Coronary arteriosclerosis 80887249 I25.10 s/p cardiac cath 07/22-moder ate stenosis -medical mxpt is seeing cardio who started pt on aldactone and vascepa Obstructiv e sleep apnea syndrome 84555636 G47.33 with hypoxia -pt is on oxygen 1 Lpt is seeing Edema of l ower extremity 745379650 R60.0 with hyperkalem ia-gentle diuresis -monitor renal functionpo ssibly due to dependent edemaEleva te legs / low salt diet /loose wt Renal insufficiency 7231 49424 N28.9 with pre renal.avoi d nsaid .pt to hold aldactone /lasix benazepril is on holdconsid er nephro referral in future Right reyes tid artery stenosis 8586704060 32752 I65.21 pt had CTA per cardiopt to see vascular sx Thyroid nodule 258565076 E04.1 pt to see endo for evaluation [id number] Sophia Pantoja MD [facility] (Adult Med) [address] [place] [address] 11/05/2019 08:02:16 11/06/2019 13:58:39 Essential hypertension 26424548 I10 pt is off of Diltiazem per cardio.pt is on losartan per cardio -monitor K and kidney function.D iscontinue d HCTZ/aldac tone due to renal insufficie ncy Type 2 sapna betes mellitus 64713796 E11.9 continue januvia /metformin once daily with close monitoring of kidney function Anxiety disorder F41.9 Improving .pt is on lexapro Hypothyroidism 43921801 E03.9 stablept to continue levothyrox in 50 mcg daily Coronary arteriosclerosis 06654732 I25.10 s/p cardiac cath 07/22-moder ate stenosis -medical mxpt is seeing cardio who started pt on vascepa Obstructiv e sleep apnea syndrome 92039151 G47.33 with hypoxia -pt is on oxygen 2 Lpt is seeing Right reyes tid artery stenosis 1687971907 28786 I65.21 pt had CTA per cardiopt is seeing vascular sx-going for sx on 11/16 per pt . Thyroid nodule 179738542 E04.1 pt is waiting to see endo for evaluation [id number] [facility] [address] [place] [address] 01/13/2020 08:16:33 01/14/2020 14:21:14 Essential hypertension 32377051 I10 pt is off of Diltiazem per cardio.pt is on losartan per cardio -monitor K and kidney function.D iscontinue d HCTZ/aldac tone due to renal insufficie ncy Type 2 sapna betes mellitus 27236769 E11.9 continue januvia /metformin once daily with close monitoring of kidney function Hyperlipidemia 99466516 E78.2 continue atorvastat invascepa is added by cardio . Hypothyroidism 12905537 E03.9 stablept to continue levothyrox in 50 mcg daily Anxiety disorder 6879468 06 F41.9 Improving .pt is on lexapro Right reyes tid artery stenosis 6800349573 32168 I65.21 s/p sx on 11/2019.pt is on asa/cilost azol/clopi dogrel .pt is seeing vascular sx. [id number] MD Priscila Vazquezhalto (Adult Med) [address] [place] [address] 04/29/2020 08:17:19 04/30/2020 09:57:53 Coronary arteriosclerosis 76356421 I25.10 s/p cardiac cath 07/22-moder ate stenosis -medical mxpt is seeing cardio who started pt on vascepa Right reyes tid artery stenosis 9579247569 98405 I65.21 s/p sx on 11/2019.pt is on asa/cilost azol/clopi dogrel .pt is seeing vascular sx. Essential hypertension 80707824 I10 pt is off of Diltiazem per cardio.pt is on losartan per cardio -monitor K and kidney function.D iscontinue d HCTZ/aldac tone due to renal insufficie ncy Type 2 sapna betes mellitus 67063309 E11.9 continue januvia /metformin once daily with close monitoring of kidney function.A dd Jardiance due to cardiovasc ular with monitoring of kidney function. Anxiety disorder 06 F41.9 Improving .pt is on lexapro Hypothyroidism 82615796 E03.9 stablept to continue levothyrox in 50 mcg daily [id number] MD Salazar Vazquez (Adult Med) [address] [place] [address] 07/29/2020 08:07:22 08/02/2020 23:07:03 Essential hypertension 78360424 I10 pt is off of Diltiazem per cardio.pt is on losartan per cardio -monitor K and kidney function.D iscontinue d HCTZ/aldac tone due to renal insufficie ncy Type 2 sapna betes mellitus 90989419 E11.9 continue januvia /metformin once daily with close monitoring of kidney function.p t is on Jardiance due to cardiovasc ular with monitoring of kidney function. Anxiety disorder F41.9 Improving .pt is on lexapro Hyperlipidemia 83453557 E78.2 continue atorvastat invascepa is added by cardio . Coronary arteriosclerosis 07125344 I25.10 s/p cardiac cath 07/22-moder ate stenosis -medical mxpt is seeing cardio who started pt on vascepa Right reyes tid artery stenosis 5585791725 05268 I65.21 s/p sx on 11/2019.pt is on asa/clopid ogrel .off of cilostazol per cardio.pt is seeing vascular sx. Renewal of prescription 359566771 Z76.0 [id number] MD Salazar Vazquez (Adult Med) [address] [place] [address] 10/28/2020 08:56:19 10/29/2020 11:25:43 Essential hypertension 17686725 I10 pt is off of Diltiazem per cardio.pt is on losartan per cardio -monitor K and kidney function.D iscontinue d HCTZ/aldac tone due to renal insufficie ncy Type 2 sapna betes mellitus 61121593 E11.9 continue januvia /metformin once daily with close monitoring of kidney function.p t is on Jardiance due to cardiovasc ular with monitoring of kidney function. Hyperlipidemia 64928904 E78.2 continue atorvastat invascepa is added by cardio . Anxiety disorder F41.9 Improving .pt is on lexapro Hypothyroidism 53392410 E03.9 stablept to continue levothyrox in 50 mcg daily Coronary arteriosclerosis 72142799 I25.10 s/p cardiac cath 07/22-moder ate stenosis -medical mx pt is seeing cardio Obstructiv e sleep apnea syndrome 62431226 G47.33 with hypoxia -pt is on oxygen 2 Lpt is seeing Renewal of prescription 667349830 Z76.0 Chronic cough 08802152 R 05 [id number] Sophia Pantoja MD [facility] (Adult Med) [address] [place] [address] 01/26/2021 09:41:26 01/28/2021 09:33:55 Essential hypertension 38944425 I10 pt is off of Diltiazem per cardio.pt is on losartan per cardio -monitor K and kidney function.D iscontinue d HCTZ/aldac tone due to renal insufficie ncy Type 2 sapna betes mellitus 51863253 E11.9 continue januvia /metformin once daily with close monitoring of kidney function.p t is on Jardiance due to cardiovasc ular with monitoring of kidney function. Hyperlipidemia 23250842 E78.2 continue atorvastat invascepa is added by cardio . Anxiety disorder F41.9 stablept is on lexapro Hypothyroidism 44165116 E03.9 stablept to continue levothyrox in 50 mcg daily Coronary arteriosclerosis 28292020 I25.10 s/p cardiac cath 07/22-moder ate stenosis -medical mx pt is seeing cardio Obstructiv e sleep apnea syndrome 16406576 G47.33 with hypoxia -pt is on oxygen 2 Lpt is seeing Renewal of prescription 034008607 Z76.0 Chronic re spiratory failure 42695010 J96.10 with hypoxia - pt sees pulmo/ hmad- pt wants to see different pulmo [id number] MD Priscila Vazquezhalto (Adult Med) [address] [place] [address] 03/02/2021 09:33:10 03/02/2021 14:12:31 Essential hypertension 32233253 I10 pt is off of Diltiazem per cardio.pt is on losartan per cardio -monitor K and kidney function.D iscontinue d HCTZ/aldac tone due to renal insufficie ncy Type 2 sapna betes mellitus 51298575 E11.9 continue januvia /metformin once daily with close monitoring of kidney function.p t is on Jardiance due to cardiovasc ular risk with monitoring of kidney function. Anxiety disorder 5325325 06 F41.9 stablept is on lexapro Hyperlipidemia 78299329 E78.2 continue atorvastat invascepa is added by cardio . Hypothyroidism 87310804 E03.9 stablept to continue levothyrox in 50 mcg daily Coronary arteriosclerosis 67967140 I25.10 s/p cardiac cath 07/22-moder ate stenosis -medical mx - pt is on aspirin and xarelto -off of plavix pt is seeing cardio Obesity 558861962 E66.9 Obstructiv e sleep apnea syndrome 70219381 G47.33 with hypoxia -pt is on oxygen 2 Lpt is seeing Right reyes tid artery stenosis 1815784885 61593 I65.21 s/p sx on 11/2019.pt is on asa/off of clopidogre l .off of cilostazol per cardio.pt is seeing vascular sx. [id number] MD Salazar Vazquez (Adult Med) [address] [place] [address] 03/31/2021 13:22:28 04/01/2021 06:00:40 Candidiasis of mouth 15885068 B37.0 pt to try clotrimazo le torche /good hydration [id number] MD Salazar Vazquez (Adult Med) [address] [place] [address] 06/02/2021 09:25:42 06/03/2021 11:18:50 Essential hypertension 32985107 I10 pt is off of Diltiazem per cardio.pt is on losartan per cardio -monitor K and kidney function.D iscontinue d HCTZ/aldac tone due to renal insufficie ncy Type 2 sapna betes mellitus 30907650 E11.9 continue januvia /metformin once daily with close monitoring of kidney function.p t is on Jardiance due to cardiovasc ular risk with monitoring of kidney function. Hyperlipidemia 56079168 E78.2 continue atorvastat invascepa is added by cardio . Anxiety disorder F41.9 stablept is on lexapro Coronary arteriosclerosis 70483621 I25.10 s/p cardiac cath 07/22-moder ate stenosis -medical mx - pt is on aspirin and xarelto -off of plavix pt is seeing cardio Obstructiv e sleep apnea syndrome 87085267 G47.33 with hypoxia -pt is on oxygen 2 Lpt is going to see new pulmo on 07/2021 Screening mammography 24 724876 Z12.31 Hypothyroidism 08246370 E03.9 stablept to continue levothyrox in 50 mcg daily Pruritic rash 41985213 L 28.2 on R/lower leg - avoid scratching [id number] Sophia Pantoja MD [facility] (Adult Med) [address] [place] [address] 09/07/2021 09:00:07 09/08/2021 07:13:09 Essential hypertension 71130902 I10 pt is off of Diltiazem per cardio.pt is on losartan per cardio -monitor K and kidney function.D iscontinue d HCTZ/aldac tone due to renal insufficie ncy Type 2 sapna betes mellitus 25074978 E11.9 continue januvia /metformin once daily with close monitoring of kidney function.p t is on Jardiance due to cardiovasc ular risk with monitoring of kidney function. Anxiety disorder F41.9 stablept is on lexapro Hyperlipidemia 84568963 E78.2 continue atorvastat invascepa is added by cardio . Hypothyroidism 64094902 E03.9 stablept to continue levothyrox in 50 mcg daily Coronary arteriosclerosis 37910217 I25.10 s/p cardiac cath 07/22-moder ate stenosis -medical mx - pt is on aspirin and xarelto -off of plavix pt is seeing cardio Obstructiv e sleep apnea syndrome 41081445 G47.33 with hypoxia -pt is on oxygen 2 Lpt is going to see new pulmo on 07/2021 Obesity 326060243 E66.9 Pruritic rash 75718261 L 28.2 on R/lower leg - avoid scratching -?tinea [id number] [facility] [address] [place] [address] 12/15/2021 09:22:08 12/16/2021 08:51:53 Essential hypertension 19711029 I10 pt is off of Diltiazem per cardio.pt is on losartan per cardio -monitor K and kidney function.D iscontinue d HCTZ/aldac tone due to renal insufficie ncy Type 2 sapna betes mellitus 69586484 E11.9 continue januvia /metformin once daily with close monitoring of kidney function.p t is on Jardiance due to cardiovasc ular risk with monitoring of kidney function. Anxiety disorder 1907324 06 F41.9 stablept is on lexapro Coronary arteriosclerosis 10678411 I25.10 s/p cardiac cath 07/22-moder ate stenosis -medical mx - pt is on aspirin and xarelto -off of plavix pt is seeing cardio Hypothyroidism 76801177 E03.9 stablept to continue levothyrox in 50 mcg daily Pruritic rash 73713742 L 28.2 on R/lower leg - avoid scratching -tried antifungal cream and steroid which did not help [id number] MD Salazar Vazquez (Adult Med) [address] [place] [address] 03/24/2022 09:31:11 03/25/2022 11:58:57 Essential hypertension 12321757 I10 pt is off of Diltiazem per cardio.pt is on losartan per cardio -monitor K and kidney function.D iscontinue d HCTZ/aldac tone due to renal insufficie ncy Type 2 sapna betes mellitus 13567345 E11.9 continue januvia /metformin once daily with close monitoring of kidney function.p t is on Jardiance due to cardiovasc ular risk with monitoring of kidney function. Hyperlipidemia 42729506 E78.2 continue atorvastat invascepa is added by cardio . Anxiety disorder F41.9 stablept is on lexapro Hypothyroidism 18784588 E03.9 stablept to continue levothyrox in 50 mcg daily Coronary arteriosclerosis 57477798 I25.10 s/p cardiac cath 07/22-moder ate stenosis -medical mx - pt is on aspirin and xarelto -off of plavix pt is seeing cardio Obstructiv e sleep apnea syndrome 89782680 G47.33 with hypoxia -pt is on oxygen 2 Lpt is going to see new pulmo on 07/2021 Obesity 811645251 E66.9 Pruritic rash 59433336 L 28.2 on R/lower leg - avoid scratching -tried antifungal cream and steroid which did not help- pt is seeing derm and pt is on doxy /clobetaso l Glossitis 40793356 K14.0 -keep good hydration [id number] Sophia Pantoja MD [facility] (Adult Med) [address] [place] [address] 09/05/2022 10:22:15 09/07/2022 09:48:49 Essential hypertension 16129411 I10 pt is off of Diltiazem per cardio.pt is on losartan per cardio -monitor K and kidney function.D iscontinue d HCTZ/aldac tone due to renal insufficie ncy Type 2 sapna betes mellitus 10573691 E11.9 continue januvia /metformin once daily with close monitoring of kidney function.p t is on Jardiance due to cardiovasc ular risk with monitoring of kidney function. Anxiety disorder F41.9 stablept is on lexapro Hyperlipidemia 89097183 E78.2 continue atorvastat invascepa is added by cardio . Hypothyroidism 99695169 E03.9 stablept to continue levothyrox in 50 mcg daily Coronary arteriosclerosis 54432855 I25.10 s/p cardiac cath 07/22-moder ate stenosis -medical mx - pt is on aspirin and xarelto -off of plavix pt is seeing cardio Obesity 584435855 E66.9 Screening for malignant neoplasm of colon 274285982 Z12.11 -had colonoscop y in the past Fatigue 30502752 R53.83 -pt uses cpap Screening mammography 24 155705 Z12.31 [id number] MD Salazar Vazquez (Adult Med) [address] [place] [address] 01/12/2023 08:59:37 01/13/2023 14:44:55 Essential hypertension 44145703 I10 pt is off of Diltiazem per cardio.pt is on losartan per cardio -monitor K and kidney function.D iscontinue d HCTZ/aldac tone due to renal insufficie ncy Type 2 sapna betes mellitus 24406358 E11.9 continue januvia /metformin once daily with close monitoring of kidney function.p t is on Jardiance due to cardiovasc ular risk with monitoring of kidney function. Coronary arteriosclerosis 34418514 I25.10 s/p cardiac cath 07/22-moder ate stenosis -medical mx - pt is on aspirin and xarelto -off of plavix pt is seeing cardio Anxiety disorder 3957455 06 F41.9 stablept is on lexapro Hypothyroidism 07943022 E03.9 stablept to continue levothyrox in 50 mcg daily Obstructiv e sleep apnea syndrome 36740756 G47.33 with hypoxia/co pd -pt is on oxygen 2 Lpt sees pulmo Obesity 314885340 E66.9 Occult blo od detected in feces 84272806 R19.5 - pt to see GI for colonoscop y Cobalamin deficiency 190 243676 E53.8 -pt to start vitamin a872244 mcg daily Vitamin D deficiency 347 22549 E55.9 Osteoarthr itis of knee 772501781 M17.0 with hand painpt is on Gabapentin bidAvoid oral nsaid - will send topical diclofenac [id number] MD Salazar Vazquez (Adult Med) [address] [place] [address] 05/18/2023 11:11:43 05/29/2023 14:21:14 Essential hypertension 60047161 I10 pt is off of Diltiazem per cardio.pt is on losartan per cardio -monitor K and kidney function.D iscontinue d HCTZ/aldac tone due to renal insufficie ncy Type 2 sapna betes mellitus 74029310 E11.9 continue januvia /metformin once daily with close monitoring of kidney function.p t is on Jardiance due to cardiovasc ular risk with monitoring of kidney function. Hyperlipidemia 39113118 E78.2 continue atorvastat invascepa is added by cardio . Anxiety disorder 06 F41.9 stablept is on lexapro Hypothyroidism 15056981 E03.9 stablept to continue levothyrox in 50 mcg daily Obesity 806945954 E66.9 Erythrasma 240886799 L08 .1 on submammary fold-keep area clean and dry [id number] MD Priscila Vazquezhalto (Adult Med) [address] [place] [address] 08/24/2023 11:19:45 08/30/2023 12:17:33 Essential hypertension 24947037 I10 pt is off of Diltiazem per cardio.pt is on losartan per cardio -monitor K and kidney function.D iscontinue d HCTZ/aldac tone due to renal insufficie ncy Type 2 sapna betes mellitus 32084098 E11.9 continue januvia /metformin once daily with close monitoring of kidney function.p t is on Jardiance due to cardiovasc ular risk with monitoring of kidney function. Hyperlipidemia 86426599 E78.2 continue atorvastat invascepa is added by cardio . Anxiety disorder F41.9 stablept is on lexapro Hypothyroidism 11898030 E03.9 stablept to continue levothyrox in 50 mcg daily Coronary arteriosclerosis 59314925 I25.10 s/p cardiac cath 07/22-moder ate stenosis -medical mx - pt is on aspirin and xarelto -off of plavix pt is seeing cardio Obesity 043941360 E66.9 Screening mammography 24 430995 Z12.31 [id number] MD Priscila Vazquezhalto (Adult Med) [address] [place] [address] 01/02/2024 11:21:16 01/08/2024 16:12:51 Essential hypertension 24197682 I10 pt is off of Diltiazem per cardio.pt is on losartan per cardio -monitor K and kidney function.D iscontinue d HCTZ/aldac tone due to renal insufficie ncy Type 2 sapna betes mellitus 67970514 E11.9 continue januvia /metformin once daily with close monitoring of kidney function.p t is on Jardiance due to cardiovasc ular risk with monitoring of kidney function. Hyperlipidemia 98363550 E78.2 continue atorvastat invascepa is added by cardio . Anxiety disorder F41.9 stablept is on lexapro Hypothyroidism 12645669 E03.9 stablept to continue levothyrox in 50 mcg daily Coronary arteriosclerosis 78501882 I25.10 s/p cardiac cath 07/22-moder ate stenosis -medical mx - pt is on aspirin and xarelto -off of plavix pt is seeing cardio Obesity 659075770 E66.8 Chronic renal failure 90 021130 N18.9 - pt sees nephro /avoid nsaid [id number] MD Priscila Vazquezhalto (Adult Med) [address] [place] [address] 03/29/2024 13:50:08 04/02/2024 12:17:01 Pain in left foot 8272746989 06199 M79.672 of big toe fx -improving Cellulitis of lower limb 121752204 L03.119 of R/side with rash- pt to avoid scratching Pruritic rash 45606669 L 28.2 on R/lower leg - avoid scratching -tried antifungal cream and steroid which did not help- pt is seeing derm and pt was rxed with doxy /clobetaso l Renewal of prescription 790134420 Z76.0 [id number] [facility] [address] [place] [address] 05/14/2024 09:45:34 05/15/2024 12:10:32 Essential hypertension 31055867 I10 pt is off of Diltiazem per cardio.pt is on losartan per cardio -monitor K and kidney function.D iscontinue d HCTZ/aldac tone due to renal insufficie ncy Type 2 sapna betes mellitus 44410231 E11.9 continue januvia /metformin once daily with close monitoring of kidney function.p t is on Jardiance due to cardiovasc ular risk with monitoring of kidney function. Anxiety disorder F41.9 stablept is on lexapro Hyperlipidemia 47089104 E78.2 continue atorvastat invascepa is added by cardio . Hypothyroidism 91667694 E03.9 stablept to continue levothyrox in 50 mcg daily Accidental fall 83316077 2 W19.XXXD with black eye and bruise on forehead- evaluated with CT head at ER [id number] Judah Falcon MD [facility] (Adult Med) [address] [place] [address] 10/02/2024 08:59:38 10/31/2024 17:34:26 Adult health examination 219005942 Z00.00 Health Risk Assessment collected and reviewedTh e patient was counseled regarding the appropriat e use ofalcohol, screening procedures and recommende d schedule for colonoscop y, cholestero l, thyroid and diabetes screening, prevention of dental and periodonta l disease, diet, regular sustained exercise for at least 30 minutes 3-4 times per week, regular use of seat belts.Karl mmend dilated eye exam and glaucoma screening every 2 years or as indicated by ophthalmol ogy Chronic ki dney disease 082986026 N18.9 -Last GFR and Creatinine : 41/1.36 (05/14/24) -Referral to nephrology placed-Con tinue to trend BMP-Advise d patient to stay hydrated and avoid nephrotoxi c medication s such as NSAIDs. HIV screen ing declined 0042284048 64061 Z53.20 Type 2 sapna betes mellitus without complication 755531512 E11.9 -Controlle d-Last A1c 6.9% (05/14/24) -Goal A1c: 7.0%-Home blood glucose readings: n/a-Ned t therapy:-D Liane Mckenzie eEye exam: referral placedFoot exam: 10/02/24Micr oal: order at f/u-Denies hypo/hyper glycemia episodes.- Recheck A1c today: 6.2%-Ilda nue current therapy: Januvia 50 mg daily, Jardiance 10 mg daily, metformin 500 mg daily-cons ider Mounjaro therapy pending patient's eye exam.-endo crinology referral placed-Rec ommended diabetic diet-Educa varsha to check feet daily. Screening mammography 24 235485 Z12.31 Mixed anxi ety and depressive disorder 679432898 F41.8 -Denies active suicidal or homicidal thoughts. Denies history of suicidal or homicidal thoughts.- patient reports symptoms are stable at this time-PHQ9 score: 0-Patient was educated on her prescribed medication s, rationale for medication s, dosing indication s, adverse reactions, black box warning, dosing indication s, SE (e.g., decreased libido, weight gain, gynecomast ia, and galactorrh ea) and the risks and benefits.- Patient instructed to go to ER or call 911 or [phone] for crisis (e.g., suicidal behaviors, suicidal ideations, intent or plan emerge). Additional ly, patient has suicide hotline #.-ilda nue current therapy: Escitalopr am 10 mg daily-Advi sed patient to call clinic with questions Hypothyroidism 05189674 E03.9 -last TSH level: 2.530 (05/14/24) -continue current therapy: Levothyrox ine 50 mcg daily-mario tor thyroid panel Chronic ob structive pulmonary disease 85646614 J44.9 -managemen t per pulmonolog y-patient reports symptoms are controlled on current therapy-co ntinue current therapy: Ellipta inhaler daily, albuterol PRN-patien t reports using a CPAP at night Health Concerns Section Related Observation LastModified by Organization Detai ls LastModified Time None Recorded Concern Status LastModified by Organization Details LastModified Time None Recorded Advance Directives Directive N: Payers Encounter Date Sequence Insurance Name Policy Number Policy Jackman Covered Member ID Jackman Member ID Guarantor Name 08/24/2023 2 *SELF PAY* Li nda S Elza 08/24/2023 1 [facility] (MEDICARE REPLACEMENT HMO) Awilda Bertrand [id number] Awilda S Elza 01/02/2024 2 *SELF PAY* Li nda S Elza 01/02/2024 1 [facility] (MEDICARE REPLACEMENT HMO) Awilda Bertrand [id number] Awilda S Elza 03/29/2024 2 *SELF PAY* Li nda S Elza 03/29/2024 1 [facility] (MEDICARE REPLACEMENT HMO) Awilda Bertrand [id number] Awilda S Elza 05/14/2024 2 *SELF PAY* Li nda S Elza 05/14/2024 1 [facility] (MEDICARE REPLACEMENT HMO) Awilda Bertrand [id number] Awilda Bertrand 10/02/2024 2 *SELF PAY* Tere Narvaez Armandoheather 10/02/2024 1 [facility] (MEDICARE REPLACEMENT/AD VANTAGE - PPO) Awilda Bertrand [id number] Awilda Bertrand Notes Date Note Type Note Provider Name and Address Organization Details Recorded Time 08/24/2023 text/html Anxiety/Depressi onRepo rted bypatient.Quality:symp toms improved Severity:denies suicidal ideations Context:family problems(having issues with siblings); lives alone Modifying Factors:medications as directed Associated Symptoms:denies homicidal ideations; mood good;anxiety(better)Di abetes F/UReported bypatient.Labs:last A1C result: 6.2 Context:checking feet regularly; taking aspirin daily; not missing doses of medications; no side effects from medications Associated Symptoms:no dizziness; no headaches; no calluses on feetHypertension F/UReported bypatient.Associated Symptoms:no dizziness; no chest pain; no shortness of breath; no palpitations;edema(bet ter) Lifestyle:regular exercise; limiting/avoiding salt Medications:taking medications as directed; no side effects from medication pt with HTN /DM/ gout/crf. taking meds as prescribed . Has chronic arthritis .pt is seeing cardio for abnormal stress test , had cardiac stress test which did not show significant stenosis , but recommended medical mx. carotid doppler showed significant stenosis-s/p sx 11/2019, seeing vascular sx as well.pt also sees pulmo for jac/chronic respiratory failure with hypoxia -on oxygen . pt has chronic cough with baseline sob which gets with activity pt is complaining of rash under her breast Sophia Pantoja MD Attn: Accounting,[address] [facility], [place], [address], [place] - [facility] 08/24/2023 12:13:12 01/02/2024 text/html Anxiety/Depressi onRepo rted bypatient.Quality:symp toms improved Severity:denies suicidal ideations Context:family problems(having issues with siblings); lives alone Modifying Factors:medications as directed Associated Symptoms:denies homicidal ideations; mood good;anxiety(better)Di abetes F/UReported bypatient.Labs:last A1C result: 7.1 Context:checking feet regularly; taking aspirin daily; not missing doses of medications; no side effects from medications Associated Symptoms:no dizziness; no headaches; no calluses on feetHypertension F/UReported bypatient.Associated Symptoms:no dizziness; no chest pain; no shortness of breath; no palpitations;edema(bet ter) Lifestyle:regular exercise; limiting/avoiding salt Medications:taking medications as directed; no side effects from medication pt with HTN /DM/ gout/crf. taking meds as prescribed . Has chronic arthritis .pt is seeing cardio for abnormal stress test , had cardiac stress test which did not show significant stenosis , but recommended medical mx. carotid doppler showed significant stenosis-s/p sx 11/2019, seeing vascular sx as well.pt also sees pulmo for jac/chronic respiratory failure with hypoxia -on oxygen . pt has chronic cough with baseline sob which gets with activity Sophia Pantoja MD Attn: Accounting,[address] [place], [address], [facility] 01/02/2024 11:51:56 03/29/2024 text/html FootReported bypatient.Location:[facility] Quality:aching Severity:mild Context:fall pt is here for ER f/u -had an accidental fall 2 wks ago , hit her L/side chest and L/footpt did not go to ER since she could able to walk and wearing shoes . pt noticed blisters on L/toe and went to ER .Xray of chest and L/big toe showed fx of big toe and rib fx per pt Sophia Pantoja MD Attn: Accounting,[address] [facility], [place], [address], [facility] 03/29/2024 15:32:22 05/14/2024 text/html Anxiety/Depressi onRepo rted bypatient.Quality:symp toms improved Severity:denies suicidal ideations Context:family problems(having issues with siblings); lives alone Modifying Factors:medications as directed Associated Symptoms:denies homicidal ideations; mood good;anxiety(better)Di abetes F/UReported bypatient.Labs:last A1C result: 7.1 Context:checking feet regularly; taking aspirin daily; not missing doses of medications; no side effects from medications Associated Symptoms:no dizziness; no headaches; no calluses on feetHypertension F/UReported bypatient.Associated Symptoms:no dizziness; no chest pain; no shortness of breath; no palpitations;edema(bet ter) Lifestyle:regular exercise; limiting/avoiding salt Medications:taking medications as directed; no side effects from medication pt had an accidental fall and hit her face , went to ER and evaluated with CT head and xray -pt is getting better pt with HTN /DM/ gout/crf. taking meds as prescribed . Has chronic arthritis .pt is seeing cardio for abnormal stress test , had cardiac stress test which did not show significant stenosis , but recommended medical mx. carotid doppler showed significant stenosis-s/p sx 11/2019, seeing vascular sx as well.pt also sees pulmo for jac/chronic respiratory failure with hypoxia -on oxygen . pt has chronic cough with baseline sob which gets with activity Sophia Pantoja MD Attn: Accounting,[address] [place], [address], [facility] 05/14/2024 12:27:02 10/02/2024 text/html MAW 2Reported bypatient.Diet and Nutrition:healthy diet Fracture Risk:no history of fractures; no sudden unexplained fractures Concentration and Memory:no decreased concentrating ability; no memory lapses or loss; does not forget words Speech/Motor difficulties:no speech difficulties; no difficulty expressing formulated concepts; no difficulty with fine manipulative tasks; no difficulty writing/copying; no slowed reaction time; does not knock things over when trying to pick them up Hearing:loss 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 Vision:worsening Activities of Daily Living:able to bathe with limited or no assistance; able to contol urination and bowels; able to dress with limited or no assistance; able to feed self with limited or no assistance; able to get out of chair or bed with limited or no assistance; able to groom with limited or no assistance; able to toilet with limited or no assistance Instrumental Activities of Daily Living:able to do house work with limited or no assistance; able to grocery shop with limited or no assistance; able to manage medications with limited or no assistance; able to manage money with limited or no assistance; able to prepare meals with limited or no assistance; able to use the phone with limited or no assistance Falls Risk Assessment:fall(s) in the past year May; Patient tripped over a cat Home Safety:no unsafe jonny hazzards; no unsafe stairs; working smoke/CO detectors; practicing 'safer sex'; has hand bars in the bathroom/shower; good lighting in the home Patient presents to the clinic to establish care. Patient was previously established with Dr. Alves for primary care.Other providers:Dr. [facility]: CardiologistDr. Velez [facility] -Medical Hx/Surgical Hx: Anxiety, COPD, CAD, hypertension, gout, hyperlipidemia, tobacco use, hypothyroidism, hernia, JAC, PAD-stent, CKD, carotid stenosis with stent placement, type 2 diabetes, hysterectomy, vitamin-D deficiency, osteoarthritis in bilateral knees, and 1 -1 -1 living child. -Family hx:Mother: -diabetes, hypertension , heart diseaseFather: -emphysema -Tobacco/Drug/Alcohol Use:Patient started using tobacco at age 17. Patient reports she quit in 2002. She was a 1PPD smoker.Patient reports history of marijuana, she is not a current user.Denies history of alcohol use. Chicken pox: Reports history of chicken Marital status: single Sexually active: no Occupation: Retired-cashier manager, care provider Highest level of education: high school Allergies: AUSTIN LEARY Attn: Accounting,[address] [place], [address], [facility] 10/29/2024 23:21:17 OBGyn Episode No OBEpisode recorded.
--- OUTSIDE RECORDS SUMMARY | 2024-11-28 08:25 | XMS_ITS | Patient Health Record ---
Author Organization [facility] Address [address] [place] [phone] Care Team Providers Care Publication Director Name Role Phone Sophia Pantoja Primary Care Provider UnavailCHASE [place] Unavailable [phone] Allergies No Known Allergies Reason For Referral No Information Medications Medication SIG (Take, Route, Frequency, Duration) Notes Start Date End Date Status Vitamin C 250 MG 1 tablet Orally Once a day Active Escitalopram Oxalate 10 MG 1 tablet Oral ly Once a day Active Januvia 50 MG as directed Orally Active Cilostazol 100 MG 1 tablet 30 minutes before or 2 hours after breakfast and dinner Orally Twice a day Active Rivaroxaban 2.5 MG 1 tablet Orally Twic e a day Active Atorvastatin Calcium 40 MG 1 tablet Oral ly Once a day Active Cranberry 500 MG as directed Orally Active Aspir-Low 81 MG 1 tablet Orally Once a day Active B12 5000 MCG as directed Sublingual Active Allopurinol 300 MG 1 tablet Orally Once a day Active Vascepa 1 GM 2 capsules with meal s Orally Twice a day Active Albuterol Sulfate HFA 108 (90 Base) MCG/ACT 1 puff as needed Inhalation every 4 hrs Active metFORMIN HCl 1000 MG 1/2 tablet with a meal Orally Once a day Active Losartan Potassium 50 MG 1 tablet Orally Once a day Active Levothyroxine Sodium 25 MCG 1 tablet in the morning on an empty stomach Orally Once a day Active Anoro Ellipta 62.5-25 MCG/ACT 1 puff Inhalation every evening Active Jardiance 10 MG 1 tablet Orally Once a day Active Multi Vitamin/Minerals - as directed Orally Active Famotidine 20 MG 1 tablet at bedtime as needed Orally Once a day Active Social History Tobacco Use: Social History [...] (20-39 cigs/day) Section Notes: WORKED PREVIOUSLY AT [employer] WORKED PREVIOUSLY AT [employer] Problems Problem Type SNOMED Code ICD Code Onset Dates Problem Status W/U Status Risk Notes Problem 143534870 Chronic kidney disease, stage 3b (N18.32) Active confirmed Problem 869577366 Type 2 diabetes mellitus without complication, without long-term current use of insulin (E11.9) Active confirmed Problem 59101153 Essential hypertension (I10) Active confirmed Problem 58748119 JAC on CPAP (G47.33) Active confirmed Problem 017759712 Nocturnal hypoxe damaris (G47.34) Active confirmed Problem 867173151 Peripheral arter ial disease (I73.9) Active confirmed Problem 638405421877074 Stenosis of righ t carotid artery (I65.21) Active confirmed Problem 777295623 Gastroesophageal reflux disease without esophagitis (K21.9) Active confirmed Problem 620348934 Acquired hypothyroidism (E03.9) Active confirmed Problem 20396626 Controlled gout (M10.9) Active confirmed Problem 828784257 Injury of right ulnar nerve at upper arm level, initial encounter (S44.01XA) Active confirmed Problem 663363594 Bilateral renal cysts (N28.1) Active confirmed Problem 69693374 Kidney stones (N20.0) Active confirmed Problem 356013892 Ulnar neuropathy of right upper extremity (G56.21) Active confirmed Vital Signs Heart Rate 72 /min 02/29/2024 Temperature 97.7 degrees Fahrenheit 02/29/2024 Respiratory Rate 18 /min 02/29/2024 Oximetry 91 % 02/29/2024 Blood pressure diastolic 76 mm Hg 02/29/2024 Weight-kg 97.07 kg 02/29/2024 Blood pressure systolic 130 mm Hg 02/29/2024 Weight 214 lbs 02/29/2024 Encounters Encounter Location Date Provider Diagnosis [facility] [address] [id number] 12/21/2023 CHASE CLARK Chronic kidney disea se, stage 3b N18.32 [...] at upper arm level, initial encounter S44.01XA [address] [id number] 02/29/2024 CHASE HERBERT Chronic kidney disea se, [...] Ulnar neuropathy of right upper extremity G56.[address] [id number] 12/04/2023 Sophia Pantoja [address] [id number] 12/19/2023 Sophia Pantoja Assessments Encounter Date Diagnosis (ICD Code) Assessment Notes Treatment Notes Treatment Clinical Notes Section Notes 12/21/2023 Chronic kidney disease, stage 3b (ICD-10 - N18.32) 02/29/2024 Chronic kidney disease, stage 3b (ICD-10 - N18.32) 12/21/2023 Type 2 diabetes mellitus without complication, without long-term current use of insulin (ICD-10 - E11.9) 02/29/2024 Bilateral renal cysts (ICD-10 - N28.1) 12/21/2023 Essential hypertension (ICD-10 - I10) 02/29/2024 Type 2 diabetes mellitus without complication, without long-term current use of insulin (ICD-10 - E11.9) 02/29/2024 Kidney stones (ICD-10 - N20.0) 12/21/2023 JAC on CPAP (ICD-10 - G47.33) 12/21/2023 Nocturnal hypoxemia (ICD-10 - G47.34) 02/29/2024 Essential hypertension (ICD-10 - I10) 02/29/2024 JAC on CPAP (ICD-10 - G47.33) 12/21/2023 Peripheral arterial disease (ICD-10 - I73.9) 12/21/2023 Stenosis of right carotid artery (ICD-10 - I65.21) 02/29/2024 Nocturnal hypoxemia (ICD-10 - G47.34) 02/29/2024 Peripheral arterial disease (ICD-10 - I73.9) 12/21/2023 Gastroesophageal reflux disease without esophagitis (ICD-10 - K21.9) 12/21/2023 Acquired hypothyroidism (ICD-10 - E03.9) 02/29/2024 Stenosis of right carotid artery (ICD-10 - I65.21) 12/21/2023 Controlled gout (ICD-10 - M10.9) 02/29/2024 Gastroesophageal reflux disease without esophagitis (ICD-10 - K21.9) 02/29/2024 Acquired hypothyroidism (ICD-10 - E03.9) 12/21/2023 Injury of right ulnar nerve at upper arm level, initial encounter (ICD-10 - S44.01XA) 02/29/2024 Controlled gout (ICD-10 - M10.9) 02/29/2024 Injury of right ulnar nerve at upper arm level, initial encounter (ICD-10 - S44.01XA) 02/29/2024 Ulnar neuropathy of right upper extremity (ICD-10 - G56.21) Plan Of Treatment Pending Test Test Name Order Date EMG/NCV ARMS 12/21/2023 Uric Acid, Serum 12/21/2023 Uric Acid, Serum 02/29/2024 Immunofixation, Serum 02/29/2024 Immunofixation, Serum 12/21/2023 Urinalysis, Complete 12/21/2023 Urinalysis, Complete 02/29/2024 Comp. Metabolic Panel (14) 02/29/2024 Comp. Metabolic Panel (14) 12/21/2023 Ultrasound : Kidneys and Bladder 024 Urine-spot sodium 12/21/2023 Urine-spot creatinine 12/21/2023 Urine-spot creatinine 02/29/2024 [id number]/RANDOM 02/29/2024 [id number]/RANDOM 12/21/2023 Insurance Providers Payer Name Payer Address Payer Phone Subscriber Number Group Number Insured Name Patient Relationship to Insured Coverage Start Date Coverage End Date Medicare of [place] [address] [id number] Awilda Bertrand Self - patient is the insured Medical (General) History Medical History History ICD Code hypertension- essential- NO HX OF MALIGN ANT hypertriglyceridemia arterioslceerosis of cad- cath Jul 2019- moderate dz DM2- dx around 2015- POST STEROIDS AND P RESENTED W SEVERE CONFUSION thyroid nodule herpes zoster jac w hypoxia- ON CPAP- 13 CM WITH 8L chronic obstructive lung dz- 3 LITER OXY GEN osteoarthritis of knee hx acute kidney failure 5 years GERD x 10 years morbid obesity gout chronic fatigue former smoker e coli sepsis 5 years ago WITH UROSEPSIS - HAD HOME ANTIBIOTICS restless leg syndrome incisional hernia anxiety disorder edema of legs peripheral vascular disease- s/p l ather ectomy of sfa Apr 2020 carotid artery stneosis- s/p stent november 01- on plavix UNTIL STARTED XARELTO kidney stones- last in 2004 Surgical History Surgery Date(Month/Year) C - SECTION R CAROTID STENT 2019November 2019 ATHRECTOMY L SFA 2019 SEVERAL HERNIA SURGERIES- IN [facility]- DR. HERRERA- UMBILICAL AND SURGICAL C SECTION SCAR hysterectomy/ TAHBSO- DUE TO CYST REMOVA L 1993 open cholecystectomy- W.O RU PTURE (done for post-prandial pain ruq- did have 17 stones)- some post removal diarrhea resolved. 1981
--- OUTSIDE RECORDS SUMMARY | 2024-11-28 08:25 | XMS_ITS ---
Author Organization [facility] Address [address] [place] [id number] Care Team Providers Care Skate Hop Name Role Phone Sophia Pantoja Primary Care Provider Unavailab CHASE Gutiérrez Unavailable [phone] Encounters Encounter Location Date Provider Diagnosis [facility] [address] [place], [place] [phone] 08/27/2024 CHASE GODINEZ Plan Of Treatment No Information Progress Notes * Awilda MCCLAIN SDOB: [birth year] (74 yo F)Acc No.[id number]:08/27/2024 Progress Notes Patient: Prashant MCCAIN Awilda Solange Provider: Juani Godinez MD :1950 A ge:73 Y S ex:Female Date:08/27/2024 Address:[address] [place], [place] [id number] Pcp:Sophia Pantoja Subjective: * Chief Complaints: * * Medical History: Objective: * Vitals: Assessment: Plan: * Treatment: * Billing Information: * Visit Code: * Procedure Codes: * Electronic signature of WALDO GODINEZ MD on 11/28/2024 at 08:25 AM CDT Sign off status: Pending * Provider: Juani Godinez MD Date: 0 08/27/2024 Generated for Marimar ellis/Rell/eThectoritting on: 0 11/28/2024 08:25 AM CDT
--- OUTSIDE RECORDS SUMMARY | 2024-11-28 08:25 | XMS_ITS | Clinical Summary ---
Author Organization [facility] Address [address] [place] [address] Phone Care Team Providers Care Economic Historian Name Role Phone Celia Schmidt APRN, CAN INTAKE WORKER Unavailable Amanda Crouch APRN, CAN INTAKE WORKER Primary Care Provider Allergies No known active allergies Medications Aspirin 81 MG Tablet Take 81 mg by mouth daily. 3 Active gabapentin (NEURONTIN) 300 MG CapsuleIndicatio ns:arthritic pain plus pain shooting up right arm Take 300 mg by mouth daily. Indications: arthritic pain plus pain shooting up right arm 0 9 Active dilTIAZem 120 MG Tablet TAKE 1 TABLET BY MOUTH TWICE DAILY 8 Active levothyroxine (SYNTHROID) 25 MCG TabletIndication s:Hypothyroidism Take 50 mcg by mouth daily. Indications: Underactive Thyroid 9 Active busPIRone (BUSPAR) 10 MG Tablet Take 10 mg by mouth 3 times daily as needed for Other (Anxiety). Active metFORMIN (GLUCOPHAGE) 1000 MG Tablet Take 1,000 mg by mouth daily. Active CRANBERRY POIndications:Ur inary Tract Infection,vitami n C 40mg; vitamin E 2.7 mg; cranberry concentrate 168 mg (from a 50:1 concentrate, equivalent to 8,400 mg of fresh cranberries). Take 1 Cap by mouth. Indications: Urinary Tract Infection, vitamin C 40mg; vitamin E 2.7 mg; cranberry concentrate 168 mg (from a 50:1 concentrate, equivalent to 8,400 mg of fresh cranberries). Active fenofibrate (LOFIBRA) 54 MG Tablet Take 54 mg by mouth daily. Active ALBUTEROL SULFATE HFA INIndications:St ates uses once or twice a day and not every day. take 1 Puff by inhalation as needed. Indications: States uses once or twice a day and not every day. Active fluticasone (FLONASE) 50 MCG/ACT SuspensionIndica tions:sinus problems 1 [place] by Nasal route 2 times daily as needed. Use in each nostril as directed. Indications: sinus problems Active allopurinol (ZYLOPRIM) 300 MG Tablet Take 300 mg by mouth daily. Active atorvastatin (LIPITOR) 40 MG Tablet Take 40 mg by mouth daily. Active OXYGEN CONCENTRATOR take 2 L/min by inhalation continuous. Use portable oxygen tanks when concentrator is not available. Active OXYGEN TANK PORTABLE take 2 L/min by inhalation continuous. Use oxygen concentrator when portable tanks not available. Active SITagliptin (JANUVIA) 50 MG Tablet Take 50 mg by mouth daily. Active escitalopram (Lexapro) 10 MG Tablet Take 10 mg by mouth daily. Active benazepril (LOTENSIN) 10 MG Tablet Take 10 mg by mouth daily. Active famotidine (PEPCID) 20 MG Tablet Take 20 mg by mouth 2 times daily. Active furosemide (LASIX) 20 MG Tablet Take 20 mg by mouth daily. Active clopidogrel (PLAVIX) 75 MG Tablet TAKE 1 TABLET BY MOUTH ONCE DAILY 0 Active Vascepa 1 g Capsule TAKE 2 CAPSULES BY MOUTH TWICE DAILY 0 Active losartan (COZAAR) 50 MG Tablet Take 50 mg by mouth every morning. 1 Active Jardiance 10 MG Tablet TAKE 1 TABLET BY MOUTH ONCE DAILY 0 Active Anoro Ellipta 62.5-25 MCG/ACT AEROSOL POWDER, BREATH ACTIVATED INHALE 1 PUFF BY MOUTH ONCE DAILY 3 Active Xarelto 2.5 MG Tablet 2 times daily. 3 Active FeroSul 325 (65 Fe) MG Tablet Take 325 mg by mouth 2 times daily. 3 Active ergocalciferol (VITAMIN D) 61378 UNIT Capsule TAKE 1 CAPSULE BY MOUTH ONCE A WEEK 3 Active cyanocobalamin 1000 MCG Tablet Take 1,000 mcg by mouth daily. 3 Active cilostazol (PLETAL) 100 MG Tablet Take 100 mg by mouth. 0 Active acetaminophen (TYLENOL) 325 MG Tablet Take 650 mg by mouth. 0 Active traMADol (ULTRAM) 50 MG TabletIndication s:Other fracture of left great toe, initial encounter for closed fracture Take 1-2 Tablets by mouth every 6 hours as needed for Mild or more severe pain. 12 Tablet 4 Active Active Problems Problem Noted Date Diagnosed Date Restless legs syndrome (RLS) 09/18/2019 Arteriosclerosis of coronary artery 07/09/2019 Chronic respiratory failure with hypoxia 019 Sepsis due to Escherichia coli 11/26/2018 UTI (urinary tract infection) 11/26/2018 Type 2 diabetes mellitus treated without insulin 11/26/2018 Acute renal failure (ARF) 11/26/2018 JAC (obstructive sleep apnea) 10/25/2018 Pulmonary HTN 10/25/2018 Morbid obesity 10/25/2018 Benign essential HTN 10/25/2018 Other specified hypothyroidism 10/25/2018 Encounters Date Type Department Care Team Description 11/11/2024 Transcribe Orders [facility] Central Scheduling [address] [place] [address] Amanda Crouch, SKYLIGHTS ASSEMBLER, CAN INTAKE WORKER Encounter for screening mammogram for malignant neoplasm of breast (Primary Dx) 11/11/2024 Transcribe Orders [facility] Central Scheduling [address] [place] [address] Amanda Crouch, SKYLIGHTS ASSEMBLER, CAN INTAKE WORKER Visit for screening mammogram (Primary Dx) from Last 3 Months Immunizations Immunization Administration Dates Next Due Influenza, High-dose, Quadrivalent 04/06,04/14/2021,04/05/2020,05/16 Influenza, Injectable, Quadrivalent 03/13/2018 Influenza, Seasonal, Injecta ble, Undefined 04/16/2015,04/18/2014 Influenza, high-dose, trivalent, PF 05/16/2019,0 02/15/2017 Pneumococcal Vaccine - 13 Valent 02/15/2017 Pneumococcal Vaccine Adult - 23 Valent 8 Pneumococcal conjugate PCV20 , polysaccharide DIW013 conjugate, adjuvant, PF 11/02/2021 Sars-cov-2 (Covid-19) Vaccin e, Unspecified 09/09/2019 TDAP Vaccine 05/04/2024,12/08/2017 Zoster Vaccine Recombinant 12/03/2019,05/16/2019 ,12/11/2018 Family History Medical History Relation Name Comments No Known Problems Daughter Aneurysm Father Diabetes Mother Heart Disease Mother Hypertension Mother No Known Problems Sister 1 No Known Problems Sister 2 Relation Name Status Comments Brother Alive Daughter Alive Father Mother Sister 1 Alive Sister 2 Alive Social History Tobacco Use Types Packs/Day Years Used Date Smoking Tobacco: Former Cigarettes 1 20 0 01/08/1983 - 01/08/2003 Smokeless Tobacco: Never Alcohol Use Standard Drinks/Week Comments Yes 0 (1 standard drink = 0.6 oz pur e alcohol) occasional Sexually Active Control Partners Comments Not Currently Male Comments No Sex and Gender Information Value Date Recorded Sex Assigned at Not on file Legal Sex Female 12:04 AM CDT Gender Identity Not on file Sexual Orientation Not on file Last Filed Vital Signs Vital Sign Reading Time Taken Comments Blood Pressure 159/90 05/04/2024 10:15 PM CDT Pulse 69 05/04/2024 10:15 PM CDT Temperature 37.1 C (98.7 F) 05/04/2024 10:15 PM CDT Respiratory Rate 20 05/04/2024 10:15 PM CDT Oxygen Saturation 96% 05/04/2024 10:15 PM CDT Inhaled Oxygen Concentration - - Weight 93.4 kg (206 lb) 05/04/2024 8:35 PM CDT Height 149.9 cm (4' 11) 05/04/2024 8:35 PM CDT Body Mass Index 41.61 05/04/2024 8:35 PM CDT Plan of Treatment Upcoming Encounters Date Type Department Care Team (Late st Contact Info) Description 12/27/2024 12:00 PM CDT [facility] [address] [place] [address] Amanda Crouch, SKYLIGHTS ASSEMBLER, CAN INTAKE WORKER [address] [place] [address] Discharge Disposition: Discharged to home or Selfcare 12/30/2024 2:00 PM CDT Office Visit [facility] - [place] [address] [place] [phone] Meagan Glass MD [address] [address] Health Maintenance Due Date Last Done Comments DEXA Bone Density 1950 Diabetes: Eye Exam 1950 Diabetes: Foot Exam 1950 Hepatitis C Virus (HCV) Screening 1950 Cologuard 10/23/2001 Immunochemical Fecal Occult Blood 10/23/2001 Diabetes: Nephropathy Screening 12/01/2019 11/30/2018, 11/29/2018, 11/28/2018, Additional history exists Diabetes: Hemoglobin A1c 11/15/2021 05/18/2021 SARS-COV-2 Immunization ( season) 2024 04/24/2024, 03/31/2023, 03/09/2022, Additional history exists Mammogram 11/08/2024 11/09/2023, 07/03, 12/18/2018 Colonoscopy 07/18/2033 07/18/2023, 07/03, 07/02/2012 Colorectal Cancer Screening 07/18/2033 Td Immunization Every 10 Years (Adults With 1 Tdap) 05/04/2034 05/04/2024, 12/08/2017 07/18/2023, 07/03, 07/02/2012 Zoster Immunization Completed 12/03/2019, 05/16/2019, 12/11/2018 Pneumococcal Immunization (50+ years) Completed 11/02/2021, 04/09/2018, 02/15/2017 Pneumococcal Immunization Combined Discontinued 11/02/2021, 04/09/2018, 02/15/2017 Respiratory Syncytial Virus (RSV) Immunization (Adult) Completed 03/07/2023 Influenza Immunization Completed 4, 03/07/2023, 04/06/2022, Additional history exists DTaP/Tdap/Td Immunization Discontinued 05/04/2024, 01/2018 Hepatitis B Immunization Aged Out No longer eligible based on patient's age to complete this topic Human Papillomavirus (HPV) Immunization Aged Out No longer eligible based on patient's age to complete this topic Meningococcal Immunization (ACWY) Aged Out No longer eligible based on patient's age to complete this topic Rotavirus Immunization Aged Out No lo nger eligible based on patient's age to complete this topic Procedures Procedure Name Priority Date/Time Associated Diagnosis Comments HUDSON SCREENING BILATERAL DIGITAL W CAD W MARIEL Routine 11/09/2023 1:15 PM CDT Encounter for screening mammogram for malignant neoplasm of breast CMP (COMPREHENSIVE METABOLIC PANEL) Routine 11/30/2018 5:09 AM CDT from Last 3 Months or Most Recently Relevant to Health Maintenance Results * HUDSON SCREENING BILATERAL DIGITAL W CAD W MARIEL (11/09/2023 1:15 PM CDT) Anatomical Region Laterality Modality breast Bilateral Mammography 11/09/2023 12:2 9 PM CDT Narrative 11/14/2023 12:26 PM CDT - HUDSON SCREENING BILATERAL DIGITAL W CAD W MARIEL BILATERAL DIGITAL SCREENING MAMMOGRAM 3D/2D WITH CAD WITH MEDIOLATERAL OBLIQUE CRANIOCAUDAL: 11/09/2023 The study was acquired using digital technology and interpreted from soft copy. Current study was also evaluated with ICAD version 7.2. 2D digital mammographic views, as well as 3D digital tomosynthesis were performed in the CC and MLO projections. CLINICAL: Routine screening. Patient has no complaints. No personal history of cancer. Paternal grandmother had breast cancer. COMPARISONS: Comparison is made to exams dated: 07/15/2021 and 12/18/2018 [facility]. BREAST TISSUE:There are scattered fibroglandular densities in both breasts. FINDINGS: No significant masses, calcifications, or other findings are seen in either breast. There has been no significant interval change. IMPRESSION: BI-RAD 1 NEGATIVE There is no mammographic evidence of malignancy. A 1 year screening mammogram is recommended. A letter will be sent to the patient with these results. The patient will be entered into a reminder system with a target due date of 1 year for her next screening exam. Electronically signed by: Alma Delia medina/penrad:11/13/2023 15:58:39 Painter Foreman(s): RT Khris(R)(M), [facility]: Normal Exam Reading location: [place] BI-RADS: 1 Negative Procedure Note Alma Delia Ray MD - 11/14/2023 - HUDSON SCREENING BILATERAL DIGITAL W CAD W MARIEL BILATERAL DIGITAL SCREENING MAMMOGRAM 3D/2D WITH CAD WITH MEDIOLATERAL OBLIQUE CRANIOCAUDAL: 11/09/2023 The study was acquired using digital technology and interpreted from soft copy. Current study was also evaluated with SandForceD version 7.2. 2D digital mammographic views, as well as 3D digital tomosynthesis were performed in the CC and MLO projections. CLINICAL: Routine screening. Patient has no complaints. No personal history of cancer. Paternal grandmother had breast cancer. COMPARISONS: Comparison is made to exams dated: 07/15/2021 and 12/18/2018 [facility]. BREAST TISSUE:There are scattered fibroglandular densities in both breasts. FINDINGS: No significant masses, calcifications, or other findings are seen in either breast. There has been no significant interval change. IMPRESSION: BI-RAD 1 NEGATIVE There is no mammographic evidence of malignancy. A 1 year screening mammogram is recommended. A letter will be sent to the patient with these results. The patient will be entered into a reminder system with a target due date of 1 year for her next screening exam. Electronically signed by: Alma Delia medina/penrad:11/13/2023 15:58:39 Painter Foreman(s): RT Khris(R)(M), [facility] sent: Normal Exam Reading location: [place] BI-RADS: 1 Negative us Sophia Pantoja MD IMG MAMMO ORDERABLES Final Re sult * (ABNORMAL) Comprehensive Metabolic Panel (CMP) (11/30/2018 5:09 AM CDT) SODIUM 140 136 - 144 mmol/L 11/30/2018 8:49 AM CDT [facility] POTASSIUM 4.8 3.5 - 5.1 mmol/L 11/30/2018 8:49 AM CDT [facility] CHLORIDE 104 100 - 110 mmol/L 11/30/2018 8:49 AM CDT [facility] CO2, VENOUS 24 22 - 32 mmol/L 11/30/2018 8:49 AM CDT [facility] ANION GAP 16.8 8.0 - 20.0 mmol/L 11/30/2018 8:49 AM CDT [facility] GLUCOSE 112(H) 70 - 99 mg/dL 11/30/2018 8:49 AM T [facility] BUN 28(H) 8 - 23 mg/dL 11/30/2018 8:49 AM T [facility] CREATININE, BLOOD 1.20(H) 0.60 - 1.10 mg/dL 11/30/2018 8:49 AM T [facility] BUN/CREATININE RATIO 23(H) 12 - 20 ratio 11/30/2018 8:49 AM T [facility] TOTAL PROTEIN 6.8 6.0 - 8.3 g/dL 11/30/2018 8:49 AM [facility] ALBUMIN 3.3(L) 3.5 - 5.2 g/dL 11/30/2018 8:49 AM [facility] Comment: The colormetric methods used for the determination of Albumin may lead to falsely elevated test results in patients suffering from renal failure or insufficiency due to interference with other proteins. A/G RATIO 0.9(L) 1.0 - 2.0 11/30/2018 8:49 AM T [facility] CALCIUM 9.4 8.9 - 10.3 mg/dL 11/30/2018 8:49 AM T [facility] T BILI <=0.2 <=1.2 mg/dL 11/30/2018 8:49 AM T [facility] SGOT (AST) 29 <=32 U/L 11/30/2018 8:49 AM CDT [facility] SGPT (ALT) 39(H) <=33 U/L 11/30/2018 8:49 AM CDT [facility] ALKALINE PHOSPHATASE 140(H) 35 - 105 U/L 11/30/2018 8:49 AM CDT [facility] GFR, EST. NONAFRICAN 45(L) >=60 11/30/2018 8:49 AM CDT [facility] GFR, EST. 54(L) >=60 019 8:49 AM CDT [facility] Comment: Creatinine Clearance is the preferred criteria for selecting drug dose adjustments in renally impaired patients. The GFR is provided as additional pertinent clinical information. GFR is reported in mL/min/1.73 sq m. Blood specimen (specimen) External Port Venous Access Device (Central Line, PICC Line) / Unknown 11/30/2018 5:09 AM CDT 11/30/2018 5:13 AM CDT Stas Elias APRN, CNP CHEMISTRY ORDERABL ES Final Result [facility] [address] [place] [address] from Last 3 Months or Most Recently Relevant to Health Maintenance Insurance MEDICARE C [employer] [place] [id number] Advance Directives * Full Code (Latest Code Status on File) Date Activated Date Inactivated Comments 12/10/2018 7:42 AM 07/18/2023 7:26 AM * Full Code Date Activated Date Inactivated Comments 11/26/2018 1:36 AM 11/30/2018 4:50 PM CPR-Full [place] atment: FULL ARREST: Attempt Resuscitation/CPR wit intubation and mechanical ventilation. PRE-ARREST: Use entire range of life support measures to stabilize the patient. Care Teams Economic Historian Relationship Specialty Start Date End Date Amanda Crouch APRN, CAN INTAKE WORKER [address] [place] [address] PCP - General Advanced Practice Nurse 10/23/24 Celia Schmidt APRN, CAN INTAKE WORKER [address] [place] [address] Nurse Practitioner Advanced Practice Nurse 02/02/23
--- OUTSIDE RECORDS SUMMARY | 2024-11-28 08:25 | XMS_ITS | Encounter Summary ---
Author Organization [facility] Address [address] [place] [address] Phone Care Team Providers Care Neurology Technologist Name Role Phone Celia Schmidt APRN, MILLROOM SUPERVISOR Unavailable Amanda Crouch CLOAK ROOM ATTENDANT, MILLROOM SUPERVISOR Primary Care Provider Encounter Details Date Type Department Care Team (Late st Contact Info) Description 11/11/2024 Transcribe Orders [facility] Central Scheduling [address] [place] [address] Amanda Crouch, CLOAK ROOM ATTENDANT, MILLROOM SUPERVISOR [address] [place] [address] Visit for screening mammogram (Primary Dx) Social History Tobacco Use Types Packs/Day Years [...] on file Sexual Orientation Not on file documented as of this encounter Plan of Treatment Upcoming Encounters Date Type Department Care Team (Late st Contact Info) Description 12/27/2024 12:00 PM CDT Appointment [facility] Mammography [address] [place] [phone] Amanda Crouch APRN, MILLROOM SUPERVISOR [address] [place] [address] Discharge Disposition: Discharged to home or Selfcare 12/30/2024 2:00 PM CDT [facility] [place] [address] [place] [phone] Meagan Glass MD [address] [address] documented as of this encounter Visit Diagnoses Diagnosis Visit for screening mammogram- Primary Other screening mammogram documented in this encounter Care Teams Neurology Technologist Relationship Specialty Start Date End Date Amanda Crouch APRN, MILLROOM SUPERVISOR [address] [place] [address] PCP - General Advanced Practice Nurse 10/23/24 Celia Schmidt APRN, MILLROOM SUPERVISOR [address] [place] [address] Nurse Practitioner Advanced Practice Nurse 02/02/23 documented as of this encounter
--- NOTE | 2024-12-01 14:58 | P.PCNPFT_ITS ---
PFT Procedure Performed PFT Procedure Performed Spirometry with Pre/Post Bronchodilator Plethysmography (Lung Vol) Diffusing Cap (DLCO) Flow Vol Loop PFT Interpretation DOS: 11/28/2024 REQUESTING: Bennie Kelley MD REASON FOR TESTING: COPD PULMONARY FUNCTION TESTS Results are reliable and reproducible. Repeatability of spirometry FEV1 maneuver pre and post bronchodilator is Grade A. GLI 2012 reference equations were used. Spirometry: The pre-bronchodilator FEV1 is 1.07 L, 60%, decreased. The pre- bronchodilator FVC is 1.44 L, 63%, decreased. The FEV1/FVC ratio is 74%, normal. After bronchodilator, the FEV1 is 1.17 L, 65%, +9%, FEV1 remains below normal. After bronchodilator, the FVC is 1.54 L, 67%, +7%, FVC remains below normal. The FEV1/FVC ratio is 76% after bronchodilator, normal. Lung volumes: The total lung capacity is 3.21 L, 74%, low end of normal. The residual volume is 1.61 L, 81%, normal. The RV/TLC is 50%, normal. FRC is 1.79 L, 73%, normal. Airway resistance is normal. Diffusion: DLCO is 10.5, 58%, moderately reduced. The DLCO/VA is 4.29, 96%, normal. Flow volume loop: The flow volume loop shows a normal pattern. IMPRESSION: Normal spirometry without airflow obstruction, no significant change after albuterol; decreased FEV1 and FVC which is a non-specific pattern, normal lung volumes with a moderate diffusion impairment which normalizes when adjusted for alveolar volume. Clinical correlation recommended. Compared to a study on 05/04/2023, the FEV1 and FVC are similar, both were reduced. FEV1 was 1.03 L which was 56% predicted, and the FVC was 1.46 L, 62% predicted. There was no airflow obstruction. The total lung capacity has decreased, previously was 3.74 L and 87% predicted, now 3.21 L, which is 74%. The TLC is now at the lowest end of normal. Diffusion is the same, previously 9.9, now 10.5, 54% previously now 58%. DLCO/VA without change, 4.03 and 90%, now 4.29 which is 96%. Compared to 09/03/2021, the current results are similar. The TLC was 3.52 L, 82%. The drop in TLC is not as large compared to the 2021 study. Still, there is a trend toward restriction. Denice Wilson MD
== END 2024-11-28 08:17 | disposition home or self-care (01) ==
PROVIDERS: Visit Provider Internal Medicine Pulmonary Disease
DX: J44.9 Chronic obstructive pulmonary disease, unspecified (principal)
CPT/HCPCS: 94060; 94726; 94729